=== PATIENT | female | born 1945 | race Caucasian/White ===

== ENCOUNTER → 2021-10-14 11:51 | Outpatient (BNVA) | payer SELFPAY | PROVIDERS: Visit Provider Specialist | DX: M16.11 Unilateral primary osteoarthritis, right hip (principal); M25.551 Pain in right hip | CPT/HCPCS: 73502 ==

== ENCOUNTER → 2021-10-22 00:01 | Outpatient (BNVA) | payer SELFPAY | PROVIDERS: Visit Provider Specialist | DX: Z01.812 Encounter for preprocedural laboratory examination (principal); Z20.822 Contact with and (suspected) exposure to COVID-19 | CPT/HCPCS: 87635 ==

== ENCOUNTER 2021-10-27 10:18 | Observation (INO) | payer SELFPAY ==
--- NOTE | 2021-10-22 10:27 | ECG_ITS ---
[facility] Test Date: 2021-10-22 Pat Name: Mikki Shore Department: Room: Gender: Female [employer] Architect: : 1945 Requested By: Gretta Wren Order Number: [id number] Dara MD: Ish Cerda M.D. Measurements Intervals [place] Rate: 72 P: 82 KS: 180 QRS: 94 QRSD: 112 T: 77 QT: 396 QTc: 435 Interpretive Statements SINUS RHYTHM POSSIBLE RIGHT ATRIAL ENLARGEMENT [0.25mV P-WAVE] POSSIBLE LEFT ATRIAL ENLARGEMENT [-0.1mV P-WAVE IN V1/V2] INCOMPLETE RIGHT BUNDLE BRANCH BLOCK [90+ ms QRS DURATION, TERMINAL R IN V1/V2, 40+ ms S IN I/aVL/V4/V5/V6] POSSIBLE RIGHT VENTRICULAR HYPERTROPHY [SOME/ALL OF: PROMINENT R IN V1, LATE TRANSITION, RAD, LEXIE, SSS] No previous ECG available for comparison Electronically Signed On 10-22-2021 18:00:20 CDT by Ish Cerda M.D. [id number]
--- NOTE | 2021-10-22 10:35 | ANES.PREANE2 ---
Pre-Anesthetic Assessment Height/Weight: Height 1.6 m Operation Date: 10/27/21 10:25 Proposed Procedures p Total Hip Arthroplasty Right 21419/m16.9(Right) - Reyna Acuna MD Familial anesthetic complications: None Social No alcohol and No tobacco Exam alert, oriented x 3, clear to auscultation bilaterally and regular rate & rhythm Airway Mallampati: Class I Dentition: false and partials Pulmonary None reported CV/HEM None reported None reported Hepatic None reported GI None reported Metabolic Thyroid Disease [facility] None reported Neuropsych None reported Anesthetic Plan ASA status: 2 Anesthesia: Regional (specify below) Risk of > 500 ml blood loss (7ml/kg in children): Yes, adequate IV access and fluids planned Medications/Allergies Home Medications Medication Instructions Recorded Confirmed Last Taken Type Thyroid medication PO 10/14/21 10/14/21 Unknown History Allergies Allergy/AdvReac Type Severity Reaction Status Date / Time No Known Drug Allergies Allergy Unknown Verified 10/14/21 12:46 [facility] Anesthesia Surgical History (Updated 10/16/21 @ 11:55 by Reyna Acuna MD) History of total left hip replacement Social History Smoking and tobacco status: never smoked Data Anesthesia Cardiac Studies: No Data to Display
[2021-10-22 10:45] VITALS: BMI 20.2
[2021-10-22 11:34] LABS: Basophils # 0.1 10^3/uL (0.0-0.1); Eosinophils # 0.1 10^3/uL (0.0-0.8); Eosinophils % 2.4 %; Hematocrit 41.3 % (37.0-47.0); Hemoglobin 13.1 g/dL (11.5-15.3); Lymphocytes # 1.7 10^3/uL (0.8-4.8); Lymphocytes % 29.9 %; Mean Corpuscular HGB Conc 31.7 g/dL (30.0-36.0); Mean Corpuscular Hemoglobin 30.3 pg (28.0-34.0); Mean Corpuscular Volume 95.6 fl (81-99); Mean Platelet Volume 9.9 fL (7.4-10.4); Monocytes # 0.5 10^3/uL (0.2-0.9); Neutrophils # 3.34 10^3/uL (1.8-7.7); Neutrophils % 57.5 %; Nucleated Red Blood Cells % 0 %; Platelet Count 223 10^3/cmm (130-400); Red Blood Count 4.32 10^6/uL (4.1-5.3); Red Cell Distribution Width 12.8 % (12.1-15.1); White Blood Count 5.8 10^3/uL (4.0-10.0)
[2021-10-22 11:38] LABS: Add Urine Microscopic? YES; Bilirubin Urine Neg (Negative); Blood Urine Trace (Negative); Glucose Urine UA Norm (Normal); Ketones Urine Negative (Negative); Leukocyte Esterase Urine Negative (Negative); Nitrate Urine Negative (Negative); Protein Urine Neg (Negative); Urine Appearance Clear (CLEAR); Urine Color Yellow (Yellow); Urobilinogen Urine Norm (Negative); pH Urine 7 (5-7)
[2021-10-22 11:45] LABS: Add Urine Culture? No; Bacteria Urine TRACE /hpf; Squamous Epithelial Cell Urine 0-4 /hpf (0-5)
[2021-10-22 12:02] LABS: Alanine Aminotransferase 13 U/L (0-33); Albumin Level 4.4 g/dL (3.5-5.2); Alkaline Phosphatase 65 IU/L (35-105); Anion Gap 12.9 (5-19); Aspartate Amino Transferase 17 U/L (0-32); Blood Urea Nitrogen 27 mg/dL (8-23); Calcium 9.8 mg/dL (8.5-10.5); Carbon Dioxide 27 mmol/L (22-29); Chloride 98 mmol/L (98-107); Globulin 2.7 g/dL (1.3-4.6); Glucose 95 mg/dL (65-115); Osmolality Calculated 283 mOsm/kg (285-295); Potassium 3.9 mmol/L (3.5-5.1); Sodium 134 mmol/L (136-145); Total Bilirubin 0.3 mg/dL (0.15-1.2); Total Protein 7.1 g/dL (6.6-8.7)
[2021-10-27] VITALS (32 sets, daily range): BP systolic 134–203; BP diastolic 67–145; PULSE 67–86; RESP 12–21; TEMP 34.1–36.6; O2SAT 91–100
[2021-10-27] MEDS: acetaminophen 1,000 MG/100 ML PIGGYBACK 400 MG IV ×2 (06:11→14:41)
[2021-10-27] MEDS: sodium chloride 0.9% 1,000 ML 30 ML IV ×3 (06:12→11:24)
[2021-10-27] MEDS: CELEcoxib 200 mg Capsule 400 MG PO (06:24)
--- NOTE | 2021-10-27 07:01 | W.PM.OPSUD ---
Surgery/Procedure H&P Update DATE OF PROCEDURE: October 27, 2021 DATE H&P PERFORMED: 10/14/21 H&P UPDATE INFORMATION: I have reviewed H&P completed within last 30 days, I have examined patient prior to procedure, No changes to prior documentation and H&P is in [facility] [place] [place] EMR on date indicated PREOP DIAGNOSIS: Primary osteoarthritis right hip PLANNED PROCEDURE: Operation Date: 10/27/21 07:00 Proposed Procedures p Total Hip Arthroplasty Right 05057/m16.9(Right) - Reyna Acuna MD Related Problem List Diagnoses (1) Primary osteoarthritis of right hip:
--- NOTE | 2021-10-27 07:06 | P.ANESUD_ITS ---
Pre-Anesthetic Update Pre-Anesthetic Assessment: Date of Surgery/Procedure: 10/27/21 Preop Alix gnosis: Primary osteoarthritis right hip Proposed Procedure: Operation Date: 10/27/21 07:00 Proposed Procedures p Total Hip Arthroplasty Right 57650/m16.9(Right) - Reyna Acuna MD Any changes to Pre-Anesthetic Assessment?: No Last Intake: Intake Last Liquid Date 10/26/21 Last Liquid Time 23:30 Last Solid Date 10/26/21 Last Solid Time 18:30 Vitals: Temperature 97.3 F L 10/27/21 06:02 Temperature Source Temporal Artery S can 10/27/21 06:02 Pulse Rate 80 10/27/21 06:02 Respiratory Rate 16 10/27/21 06:02 Blood Pressure 201/112 10/27/21 06:02 Blood Pressure Laurence n 141 10/27/21 06:02 Pulse Oximetry 97 10/27/21 06:02 Oxygen Delivery Me thod 10/27/21 06:02 Exam: Pre-Anes Outpt Exam: alert, oriented x 3, clear to auscultation bilaterally and regular rate & rhythm Cardiac Studies: No Data to Display
[2021-10-27] MEDS: vancomycin 1,000 MG SDV 1000 MG XX (08:08)
[2021-10-27] MEDS: ceFAZolin 1,000 mg SDV 1000 MG IRRIGATION (08:08)
--- NOTE | 2021-10-27 08:28 | SUR.OPER ---
Family Notified Of Patient's Status Via Phone.
--- NOTE | 2021-10-27 09:20 | SUR.OPER ---
Family Notified Of Patient's Status Via Phone.
--- NOTE | 2021-10-27 09:54 | P.OP_ITS ---
Operative Report Date of procedure: October 27, 2021 Pre-op diagnosis: Primary osteoarthritis right hip Post-op diagnosis: Primary osteoarthritis right hip Post-op findings: Severe degenerative osteoarthritis of the right hip with large osteophytes Procedure done: Right total hip arthroplasty Implants: The Saul total hip system with the following implants: A 52 mm by E Trident II solid back acetabular shell, an MDM cementless liner 42 mm inner diameter by E alpha code and Accolade II size 5 with 127 degree neck angle hip stem with a 28 mm outer diameter -2.7 mm neck offset and a gnosticist X3 insert size 28 mm inner diameter by 42E Specimens removed/disposition: Femoral head, disposed of Pathology: none sent Surgeon: Reyna Acuna Sagger Preparer: [employer] [facility] operating room technicians Anesthesia: MAC (With spinal, ASA 2) Estimated blood loss (mL): 200 IV fluids (mL): 1,400 Urine output (mL): 1,000 Complications: None Findings: Severe degenerative osteoarthritis with osteophytes. Leg lengths appeared equal at the conclusion of the case. The hip was stable at 90 degrees of flexion with 80 degrees of internal rotation and 30 degrees of adduction. It was also stable to external rotation and toe hang. Condition: stable Disposition: PACU (Then to floor for postoperative rehabilitation and pain management) Brief History: This 76-year-old woman was in her usual state of health when she presented to my office complaining of severe right hip pain. The patient had previously undergone left total hip arthroplasty. She tolerated this procedure well. The patient actually had significant crepitation as well. After discussion, she wished to proceed with right total hip arthroplasty. Discussion was undertaken of the risks and benefits, and consents were signed preoperatively. Procedure: Patient was brought to the operating theater.? She was transferred to the operating room table and subsequently administered a spinal anesthesia with MAC, ASA 2.? Following administration of adequate anesthesia, the patient was placed in full lateral position and held in position with a pegboard. The patient's right lower extremity was then prepped and draped in usual fashion utilizing DuraPrep.? It was draped free.? Following prepping and draping, a surgical pause was performed. At the time of surgical pause, we identified the site and side of surgery.? We also identified the patient and preoperative surgical markings.? Confirmation was made of equipment availability.? Additionally, the patient's preoperative IV antibiotic, Ancef 2 g, was confirmed as being given in a timely fashion and being the appropriate antibiotic.? She received TXA 1 g preoperatively as well. Following the surgical pause, an incision was made centering over the patient's greater trochanter continuing proximally and distally as necessary to allow access to the hip joint.? Dissection continued through skin and soft tissues using a scalpel, and hemostasis was obtained using electrocautery. The tensor fascia tate was identified and incised longitudinally.? Sciatic nerve was identified and protected throughout the surgical procedure.? A Charnley U retractor was placed after the tensor fascia tate had been incised longitudinally, and the sciatic nerve had been identified.? The piriformis muscle was identified and tagged. Piriformis muscle along with the remaining short external rotators were then incised from the posterior aspect of the hip joint. These were retracted posteriorly. ? The capsule was entered in a T-type fashion with the edges being tagged. The hip was then dislocated. Following hip dislocation, a femoral neck osteotomy was accomplished in the appropriate position. We then evaluated the acetabulum. The femur was retracted anteriorly.? Soft tissues were retracted and the labrum was removed.? We then began reaming.? We deepened the acetabulum utilizing a smaller reamer.? Evaluation of the acetabulum was accomplished, and we were able to ream to 51 mm to allow for a size 52 mm acetabular shell. The acetabular component was impacted into position. It was noted that the acetabulum matched the bony anatomy.? The cup was noted to seat nicely and had good fixation upon impact.? The MDM cementless liner was impacted into position and care was taken to assure that it completely seated.? Also, we confirmed that the acetabular insert was completely seated prior to addressing the femur. Attention was directed to the proximal femur.? The proximal femur was lifted out of the wound.? A canal finder was passed, and we then used the reamer to lateralize.? We then began broaching. ?We broached sequentially and had excellent fit and fill with the size 5 Accolade II 127 degree femoral component.? A trial reduction was accomplished with a -2.7 mm offset femoral head once the size 5 broach was placed in position.? The patient was stable with this construct, and it was not felt that we had increased her leg length.? With this in place, we had the above stabilities, and at that time, we felt that we had restored leg lengths.? We also felt that we had excellent stability noted above. Therefore, trial components were removed after the hip was dislocated.? The size 5 Accolade II 127 degree neck angle hip stem was impacted into position without difficulty and onto this was placed a -2.7 mm offset by 28 mm outer diameter femoral head inside of the MDM size 42E insert with a 28 mm inner diameter.? With this construct, we had the above-noted stability.? The stem was noted to seat nicely prior to placement of the femoral head.? The wound was copiously irrigated with Betadine.? At this time, with all components in appropriate position, the hip was reduced.? Following reduction of the prosthesis once again, we confirmed the stability of the hip.? Leg lengths were also felt to be satisfactory. Being satisfied with the prosthesis, attention was directed to closure.? Closure was accomplished with 0 Vicryl in the capsular tissues.? Piriformis was reattached with 0 Vicryl as well.? Tensor fascia tate was closed with 0 Vicryl in an interrupted fashion.? The subcutaneous tissues were closed with 2-0 Monocryl.? Vancomycin powder and a Gelfoam thrombin mixture was placed into the wound as well.? The skin was closed with 4-0 Monocryl followed by Dermabond, Prineo, and OpSite.? The patient was placed in an abduction pillow.? She was returned the Recovery Room in a satisfactory condition and will be discharged to the floor for postoperative rehabilitation and pain management.? There were no complications. Related Problem List Diagnoses (1) Primary osteoarthritis of right hip:
--- NOTE | 2021-10-27 10:01 | XR_ITS ---
WS: [id number] Exam: XR pelvis 1-2V* [id number] Date/Time of Exam: 10/27/2021 10:08 AM Reason For Exam: S/P THAO right Comparison 10/14/2021. Recent total hip replacement on the right appears to be in satisfactory position from the AP view. No lateral view was included. Postoperative changes in the adjacent soft tissues. Intact left-sided tot al hip replacement also noted. The pelvis is intact. XR/XR pelvis 1-2V* [id number] IMPRESSION: 1. Recent right total hip replacement.
[2021-10-27] MEDS: fentaNYL 50 mcg/mL INJ 2mL IVP (10:04)
[2021-10-27] MEDS: HYDROmorphone 1 mg/mL INJ 1 mL 0.5 MG IVP ×3 (10:12→10:27)
[2021-10-27] MEDS: oxyCODONE 5 mg IR Tab/Cap PO ×3 (11:45→21:43)
--- NOTE | 2021-10-27 13:58 | PM.CONSULT ---
Providers/Reason For Consult Consulting Physician/Specialty*: Frase/Hosptialist Reason for Consult*: Hypertension and hypothermia Requesting Physician: Dr Acuna Attending Physician: Reyna Acuna MD History of Present Illness History of Present Illness Mikki Shore is a 76 year old female who underwent total right hip arthroplasty by Dr. Acuna on the day of admission. Upon presentation to the hospital today she was noted to be significantly hypertensive with pressures 200s over 100s. She remained hypertensive throughout surgery and upon arrival to the floor postoperatively. She does report a history of some high blood pressures in the past. She has managed it with herbal medications rather than any prescription medications. Last time she saw her primary care provider, Dr. Adriana Verduzco in [facility] who's office can be reached at [phone], blood pressures were 140s over 80s. This was back in April 2021. Patient admits to being anxious about being in the hospital. She has a preference for female caregivers and did have a male anesthesiologist/nurse this morning. On the floor she has female nurses. Current blood pressure is 180s over 90s. She denies any shortness of breath. She is nauseated and has had some vomiting but is also had some pain medications and anesthesia today. Denies current chest pain. Does have some issues with her right shoulder moving out of place and will have some chest discomfort when it is bothering her, only to resolve when the shoulder is back in place . No other reports of any chest discomfort. She denies any numbness or paresthesias beyond what she is currently feeling only in her right lower extremity postoperatively. Reports some blurry vision after she has been reading for a while at times. No headaches described. She is unsure with the herbal/natural therapeutic she had been on in the past. The only prescription medication she takes is levothyroxine for hypothyroidism. She denies any history of coronary artery disease. Her father had diabetes later in life but denies any family history of heart problems. She did mention her having heart problems. I do not have any more recent vital signs for comparison then today which are listed below. In addition to the hypertension, patient was also hypothermic with temperatures as low as 93.3. Currently up to 97.5. She reports some weight loss. Last bowel movement was yesterday. No other recent symptoms to speak of beyond issues with her hip. History is obtained from Mrs. Holcomb, with input from her daughter and eldest son/[id number] who are in the room with her. Review of Systems Const: Reports: change in weight (weight loss); Denies: fever(s) Eyes: Reports: blurry vision (occassional after reading a long time) ENMT: Denies: disequilibrium Card: Reports: chest pain (Only when she has issues with her left shoulder moving out of place ); Denies: palpitations or edema Resp: Denies: dyspnea or non-productive cough GI: Reports: nausea, vomiting, constipation (When she last had surgery) and bloating (With prune juice) : Reports: other (Uribe catheter in place with significant amount of urine output noted) Musc: Reports: extremity pain (Appropriate postoperative discomfort right lower extremity) Skin/Breast: Denies: rash Neuro: Reports: other (Denies focal motor or sensory deficits beyond expected post op changes); Denies: headache(s) or dizziness Joe/Lymph: Denies: easy bleeding Medications/Allergies Home Medications Medication Instructions Recorded Confirmed Last Taken Type levothyroxine 75 mcg tablet 75 mcg PO DAILY 10/22/21 10/22/21 Unknown History Allergies Allergy/AdvReac Type Severity Reaction Status Date / Time lactase [From Dairy Aid] Allergy Unknown Verified 10/27/21 06:00 No Known Drug Allergies Allergy Unknown Verified 10/27/21 06:00 Sugars, Metabolically Active Allergy Unknown Verified 10/27/21 06:00 wheat Allergy ALGY-Rash Verified 10/27/21 06:00 Current Medications Generic Name Dose Route Start Last Admin Trade Name Freq PRN Reason Stop Dose Admin Sodium Chloride 1,000 mls @ 30 mls/hr 10/27/21 10:45 10/27/21 11:24 Sodium Chloride 0.9% IV 30 mls/hr .Q24H CLARA Administration Oxycodone HCl 5 mg 10/27/21 10:55 10/27/21 11:45 Oxycodone 5 Mg Ir Tab/Cap PO 5 mg Q4H PRN Administration MODERATE PAIN PFSH Acute PFSH: Medical History (Updated 10/27/21 @ 15:12 by Anju Hopkins MD) Gluten intolerance Self diagnosed Hypothyroidism Surgical History (Updated 10/27/21 @ 14:02 by Anju Hopkins MD) History of total left hip replacement Family History (Updated 10/27/21 @ 14:41 by Anju Hopkins MD) Father Diabetes Mother Cancer from pneumonia Denies family history of CAD (coronary artery disease) Anesthesia complication Hypertension Social History (Updated 10/27/21 @ 14:03 by Anju Hopkins MD) Smoking and tobacco status: never smoked Alcohol intake: never Substance/Drug Use: never Vitals/I&O/Wt Last Vital Signs Temp 97.1 F L 10/27/21 13:30 Pulse 68 10/27/21 13:20 Resp 17 10/27/21 13:20 BP 187/87 10/27/21 13:20 Pulse Ox 96 10/27/21 13:20 Selected Blood Pressure Entries 10/27/21 06:02 10/27/21 09:57 10/27/21 10:00 Blood Pressure 201/112 134/88 136/97 10/27/21 10:05 10/27/21 10:10 10/27/21 10:15 Blood Pressure 142/105 178/90 172/103 10/27/21 10:20 10/27/21 10:25 10/27/21 10:30 Blood Pressure 171/145 179/101 168/106 10/27/21 10:35 10/27/21 10:40 10/27/21 10:50 Blood Pressure 168/104 167/100 167/94 10/27/21 10:55 10/27/21 11:05 10/27/21 11:20 Blood Pressure 165/96 160/94 203/98 10/27/21 11:50 10/27/21 12:20 10/27/21 13:20 Blood Pressure 193/95 202/96 187/87 10/26/21 10/27/21 10/27/21 22:59 06:59 14:59 Intake Total 100 / 100 2934.5 / 2934.5 Output Total 2200 / 2200 Balance 100 / 100 734.5 / 734.5 Physical Exam Narrative: Constitutional: Sleepy post surgery but alert enough to answer questions, looks like she does not feel well and in fact had an episode of vomiting during my evaluation after which she looked less unwell, thin build HEENT: Normocephalic, pupils are equally reactive, extraocular movements are intact, no photophobia, dry mucous membranes Neck: Supple Respiratory: Clear to auscultation bilaterally Cardiovascular: Regular rate and rhythm, no murmurs gallops or rubs, prominent jugular venous pulsations Abdomen: Soft, nontender,postive bowels sounds : Uribe catheter, around 800 mL clear yellow urine in bag Extremities: No pretibial edema, equal dorsalis pedis pulses bilaterally, surgical site intact to the right hip Skin: Dry, no rashes or bruises, postsurgical changes appreciated Neuro: Speech clear, face symmetric, handgrip is equal, can move toes on both feet Psych: Normal affect Urinary Catheter Management: Uribe: Cath Placed During This Visit: yes Urinary Catheter Date of Insertion: 10/27/21 Urinary Catheter Time of Insertion: 07:20 Data : 10/22/21 11:05 10/22/21 11:05 Other Labs: Radiology Impressions Pelvis X-Ray 10/27/21 10:01 IMPRESSION: 1. Recent right total hip replacement. Laboratory Results WBC 5.8 10^3/uL (4.0-10.0) 10/22/21 11:05 RBC 4.32 10^6/uL (4.1-5.3) 10/22/21 11:05 Hgb 13.1 g/dL (11.5-15.3) 10/22/21 11:05 Hct 41.3 % (37.0-47.0) 10/22/21 11:05 MCV 95.6 fl (81-99) 10/22/21 11:05 MCH 30.3 pg (28.0-34.0) 10/22/21 11:05 MCHC 31.7 g/dL (30.0-36.0) 10/22/21 11:05 RDW 12.8 % (12.1-15.1) 10/22/21 11:05 Plt Count 223 10^3/cmm (130-400) 10/22/21 11:05 MPV 9.9 fL (7.4-10.4) 10/22/21 11:05 Neut % (Auto) 57.5 % 10/22/21 11:05 Lymph % (Auto) 29.9 % 10/22/21 11:05 Taliaferro % (Auto) 9.0 % 10/22/21 11:05 Eos % (Auto) 2.4 % 10/22/21 11:05 Baso % (Auto) 1.0 % 10/22/21 11:05 Neut # (Auto) 3.34 10^3/uL (1.8-7.7) 10/22/21 11:05 Lymph # (Auto) 1.7 10^3/uL (0.8-4.8) 10/22/21 11:05 Taliaferro # (Auto) 0.5 10^3/uL (0.2-0.9) 10/22/21 11:05 Eos # (Auto) 0.1 10^3/uL (0.0-0.8) 10/22/21 11:05 Baso # (Auto) 0.1 10^3/uL (0.0-0.1) 10/22/21 11:05 Nucleated RBC % (auto) 0 % 10/22/21 11:05 Nucleated RBCs # 0.0 /100WBC 10/22/21 11:05 Sodium 134 mmol/L (136-145) L 10/22/21 11:05 Potassium 3.9 mmol/L (3.5-5.1) 10/22/21 11:05 Chloride 98 mmol/L (98-107) 10/22/21 11:05 Carbon Dioxide 27 mmol/L (22-29) 10/22/21 11:05 Anion Gap 12.9 (5-19) 10/22/21 11:05 BUN 27 mg/dL (8-23) H 10/22/21 11:05 Creatinine 0.5 mg/dL (0.5-0.9) 10/22/21 11:05 GFR Calculation Not Reportable 10/22/21 11:05 Glucose 95 mg/dL (65-115) 10/22/21 11:05 Calculated Osmolality 283 mOsm/kg (285-295) L 10/22/21 11:05 Calcium 9.8 mg/dL (8.5-10.5) 10/22/21 11:05 Total Bilirubin 0.3 mg/dL (0.15-1.2) 10/22/21 11:05 AST 17 U/L (0-32) 10/22/21 11:05 ALT 13 U/L (0-33) 10/22/21 11:05 Alkaline Phosphatase 65 IU/L (35-105) 10/22/21 11:05 Total Protein 7.1 g/dL (6.6-8.7) 10/22/21 11:05 Albumin 4.4 g/dL (3.5-5.2) 10/22/21 11:05 Globulin 2.7 g/dL (1.3-4.6) 10/22/21 11:05 Urine Color Yellow (Yellow) 10/22/21 11:09 Urine Appearance Clear (CLEAR) 10/22/21 11:09 Urine pH 7 (5-7) 10/22/21 11:09 Ur Specific Friant 1.010 (1.005-1.030) 10/22/21 11:09 Urine Protein Neg (Negative) 10/22/21 11:09 Urine Glucose (UA) Norm (Normal) 10/22/21 11:09 Urine Ketones Negative (Negative) 10/22/21 11:09 Urine Blood Trace (Negative) H 10/22/21 11:09 Urine Nitrate Negative (Negative) 10/22/21 11:09 Urine Bilirubin Neg (Negative) 10/22/21 11:09 Urine Urobilinogen Norm mg/dL (Negative) 10/22/21 11:09 Ur Leukocyte Esterase Negative (Negative) 10/22/21 11:09 Urine RBC None /hpf (0-2) 10/22/21 11:09 Urine WBC None /hpf (0-5) 10/22/21 11:09 Ur Squamous Epith Cells 0-4 /hpf (0-5) H 10/22/21 11:09 Amorphous Sediment Not Reportable 10/22/21 11:09 Urine Bacteria Trace /hpf (NONE) 10/22/21 11:09 A&P Assessment and plan (1) Hypertension: Has a history of high blood pressures in the past but is never required prescription medication, had been on herbal treatments in the past. Initially it was thought that blood pressures were as elevated as they are due to anxiety which patient freely admits to having about being in the hospital setting however significant hypertension with pressures as high as 200s over 100s have persisted. Denies current pain as a contributing factor. She received Celebrex as part of her overall pain control management as well as IV fluids but otherwise do not see any medications that might account for such. Pressures were elevated before she received any fluids today as well. Preoperative labs done on the of this month did not reveal any protein although trace blood was noted without any red blood cells identified. BUN was slightly above normal range. Thus far today demonstrating good urine output. Presently without any neurological symptoms. Has had some nausea but that could just as easily be secondary to pain medication and anesthesia. She indicates she did have nausea after pain medicines last surgery. Denies chest pain or difficulty breathing. Status: Acute (2) Hypothermia: Patient's temperature came up quite quickly without much in the way of intervention bring up possibility of a spurious reading. With improvement will simply monitor for now without further work-up at this time. Status: Acute (3) S/P total right hip arthroplasty: Elective procedure, postop day 0 Status: Acute (4) Hypothyroidism: Chronically on levothyroxine Status: Chronic Plan Check EKG for comparison against 1 done preoperatively Discussed with patient and her family checking electrolytes in the morning given the hypertension and they were agreeable We will check H&H along with electrolytes Plan to start her on a low-dose of amlodipine 2.5 mg daily and monitor response If we need to initiate IV or other treatment patient and family are agreeable to this with goal of utilizing lower doses of any medications that we may have to use Given Frase in the upper ranges of normal when she was last seen at primary care provider's clinic and lack of definitive symptoms related to current high blood pressures will hold off on further work-up for the time being We will monitor patient's response to treatment and for any symptoms suggestive of more acute cardiac process Ensure adequate pain control Ensure bowel regimen taken regularly with the medications as constipation was her primary problem postoperatively last time along with nausea Antiemetics as needed Home levothyroxine has continued Recommend outpatient follow-up with primary care provider to monitor blood pressures and potential need for prescription treatment versus reinitiation of herbal/natural therapy she was previously taking Monitor urine output until Uribe was removed as volume out seems high for documented amount in presently Adjusted diet to support her gluten-free preference Supportive care otherwise Will follow along while patient is here to assist with hypertension management, particularly in light of her preference for female provider Plans were discussed with patient and family present in the room and all were given an opportunity to ask questions Full code Thank you for consultation Consult Attestations Medical Necessity Statement: As per attending. In addition to care post operatively from orthopedic standpoint, also currently requiring management and evaluation of significant hypertension in a patient without a know history of high blood pressure. Coding Level of Care Code Acute Azure Architect for Chg Fwd Diagnoses Hypertension I10 Hypothermia T68.XXXA S/P total right hip arthroplasty Z96.641 Hypothyroidism E03.9
[2021-10-27] MEDS: ondansetron 2 mg/ML SDV 2 mL 4 MG IVP (14:28)
--- NOTE | 2021-10-27 14:39 | ECG_ITS ---
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 Measurements Intervals Welsh Rate: 74 P: 67 AK: 187 QRS: 61 QRSD: 109 T: 57 QT: 442 QTc: 493 Interpretive Statements SINUS RHYTHM POSSIBLE LEFT ATRIAL ENLARGEMENT [-0.1mV P-WAVE IN V1/V2] INCOMPLETE RIGHT BUNDLE BRANCH BLOCK [90+ ms QRS DURATION, TERMINAL R IN V1/V2, 40+ ms S IN I/aVL/V4/V5/V6] Compared to ECG 10/22/2021 10:33:01 No significant changes Electronically Signed On 10-28-2021 17:15:17 CDT by Johny Laura M.D. [id number]
--- NOTE | 2021-10-27 15:24 | PC.NURSE ---
order for hydromorphone seen by this nurse asked Dr. Hopkins if she would like for patient to have this and she said no do not give to patient. She had her tylenol infusion and can have her next oxycodone at 1545. Patient denies pain at this time.
--- NOTE | 2021-10-27 15:45 | ANE.PACU2 ---
Inpatient post-anesthesia follow up: Airway intact: Yes Vital signs: Temperature 97.5 F Pulse Rate 72 Respiratory Rate 18 Blood Pressure 189/93 Pulse Oximetry 97 Oxygen Delivery Me thod Room Air Oxygen Flow Rate Fraction of Inspir ed Oxygen Hydration adequate: Yes Nausea and vomiting: No Pain level: 4 Mental status: Baseline
[2021-10-27] MEDS: amlodipine 5 mg Tablet 2.5 MG PO (15:52)
[2021-10-27] MEDS: chlorhexidine gluconate 0.12% Btl 473 mL 30 ML MUCOUS MEM ×2 (17:32→21:44)
[2021-10-27] MEDS: sennosides-docusate Tablet 2 TAB PO (17:33)
[2021-10-27] MEDS: mupirocin oint 22 gm 1 APPLIC NASAL (17:33)
--- NOTE | 2021-10-27 18:15 | PC.NURSE ---
Iron complex not given on time due to wrong iron being sent over from pharmacy. Mikal in pharmacy is going to tube over the correct iron formulation and then it will be given to the patient.
[2021-10-27] MEDS: iron polysaccharide complex 150 mg Capsule PO (18:43)
[2021-10-28] VITALS (10 sets, daily range): BP systolic 104–163; BP diastolic 56–71; PULSE 64–72; RESP 15–18; TEMP 36.6–36.9; O2SAT 97
[2021-10-28] MEDS: acetaminophen 1,000 MG/100 ML PIGGYBACK 400 MG IV (01:06)
[2021-10-28] MEDS: oxyCODONE 5 mg IR Tab/Cap PO ×5 (01:41→21:10)
[2021-10-28 05:16] LABS: Hematocrit 36.4 % (37.0-47.0); Hemoglobin 11.6 g/dL (11.5-15.3)
[2021-10-28 05:44] LABS: Alanine Aminotransferase 14 U/L (0-33); Albumin Level 3.5 g/dL (3.5-5.2); Alkaline Phosphatase 51 IU/L (35-105); Anion Gap 11.1 (5-19); Aspartate Amino Transferase 23 U/L (0-32); Blood Urea Nitrogen 10 mg/dL (8-23); Calcium 8.9 mg/dL (8.5-10.5); Carbon Dioxide 24 mmol/L (22-29); Chloride 98 mmol/L (98-107); Globulin 2.2 g/dL (1.3-4.6); Glucose 134 mg/dL (65-115); Osmolality Calculated 269 mOsm/kg (285-295); Potassium 4.1 mmol/L (3.5-5.1); Sodium 129 mmol/L (136-145); Thyroid Stimulating Hormone 3.43 uIU/mL (0.27-4.20); Total Bilirubin 0.7 mg/dL (0.15-1.2); Total Protein 5.7 g/dL (6.6-8.7)
--- NOTE | 2021-10-28 06:10 | PC.NURSE ---
This nurse rounded on pt at 0600. Pt was taking a tablet. When asked what the tablet was pt stated this is my levothyroxine 75 mcg.
[2021-10-28] MEDS: mupirocin oint 22 gm 1 APPLIC NASAL (10:04)
[2021-10-28] MEDS: aspirin 325 mg EC Tablet PO (10:04)
[2021-10-28] MEDS: amlodipine 5 mg Tablet 2.5 MG PO (10:04)
[2021-10-28] MEDS: multivitamin therapeutic Tablet 1 TAB PO (10:05)
[2021-10-28] MEDS: sennosides-docusate Tablet 2 TAB PO ×2 (10:06→18:18)
--- NOTE | 2021-10-28 10:43 | PC.NURSE ---
THIS [employer]ION[employer] PIL[employer] GOT PATIENT UP AND INTO CHAIR WITHOUT DIFFICULTY. NOTIFIED SANTOS IN PT THAT MS BURTON WANTED TO KNOW WHEN SHE WAS UP IN CHAIR AND NOT DIZZY AND SHE WOULD RETURN AND WALK HER. THIS [employer] P[employer] CALLED PT CELL PHONE AND TOLD WAYLON AGAIN THAT PATIENT NEEDED TO BE WALKED. WAS WAITING TILL SHE WAS WALKING BEFORE REMOVING HER BRITO.
--- NOTE | 2021-10-28 11:55 | PC.NURSE ---
pt is refusing to eat lunch, and refusing nursing to remove catheter. states she is too tired and needs to take a nap, does not want to be disturbed for 2 hours
--- NOTE | 2021-10-28 12:44 | P.PN_ITS ---
Subjective Subjective: Some dizziness this morning when she first got up. No more vomiting. Still with some intermittent nausea. Blood pressures are better than yesterday as noted below. Declined to have ramírez removed. No flatus or BM yet. Will see if she can tolerate lunch. No chest pain of focal neurological co mplaints. Medications: Reviewed: Yes Vitals/I&O/Wt Last Vital Signs Temp 98.5 F 10/28/21 10:10 Pulse 65 10/28/21 10:10 Resp 17 10/28/21 10:10 BP 163/71 10/28/21 10:10 Pulse Ox 97 10/28/21 10:10 Selected Entries 10/27/21 16:20 10/27/21 18:20 10/27/21 20:20 Blood Pressure 164/83 135/75 144/67 10/28/21 04:35 10/28/21 10:10 Blood Pressure 142/68 163/71 10/27/21 10/28/21 10/28/21 22:59 06:59 14:59 Intake Total 360 / 3394.5 100 / 3494.5 Output Total 400 / 4300 250 / 4550 120 / 120 Balance -40 / -905.5 -150 / -1055.5 -120 / -120 Physical Exam Narrative: Constitutional: Awakem sittiing up in bed, smiling HEENT: EOMI, moist mucus membranes Respiratory: Clear to auscultation bilaterally Cardiovascular: Regular rate and rhythm Abdomen: Soft, nontender, postive bowels sounds : Ramírez catheter remains in place Extremities: Surgical site intact to the right hip, no increase edema noted Neuro: Speech clear, smile symmetric, moves all extremities Urinary Catheter Management: Ramírez: Cath Placed During This Visit: yes Reason for Continuing Indwelling Catheter: Required Immobilization for Trauma or Surgery or Anesthesia Urinary Catheter Date of Insertion: 10/27/21 Urinary Catheter Time of Insertion: 07:20 Data : 10/28/21 05:03 10/28/21 05:03 Other Labs: Laboratory Tests 10/28/21 05:03 Calcium 8.9 Total Bilirubin 0.7 AST 23 ALT 14 Alkaline Phosphatase 51 Total Protein 5.7 L Albumin 3.5 Globulin 2.2 TSH 3.43 A&P Assessment and plan (1) Hypertension: Suspect has untreated baseline hypertension, potentially exacerbated currently by being in health care setting. More significant elevation noted day of r, while initially felt to be due to anxiety, persisted. May be anesthesia/pain related persistent elevations along with initial anxiety. Goal blood pressures less than 140/90 for this patient. Amlodipine 2.5mg daily started on 10/27, tolerating well thus far Status: Acute Qualifiers: Hypertension type: primary hypertension Qualified Code(s): I10 - Essential (primary) hypertension (2) S/P total right hip arthroplasty: Elective procedure, postop day 1 Has been out of bed, still with some dizziness upon standing Hgb 36, down an bit Status: Acute (3) Hypothermia: Transient and possible spurious. No intervention or work up. Status: Resolved Qualifiers: Encounter type: initial encounter Qualified Code(s): T68.XXXA - Hypothermia, initial encounter (4) Hypothyroidism: Chronically on levothyroxine TSH within normal limits at 3.43 Status: Chronic Qualifiers: Hypothyroidism type: acquired Qualified Code(s): E03.9 - Hypothyroidism, unspecified Plan Post op EKG no changes compared to preop Blood sugars noted to be borderline today, will have rechecked outpatient Reviewed with family getting a new BP cuff for home use, recording pressures and taking the device and list of BPs to outpatient follow up appointment Low sodium today, likely volume related, will monitor clinically Continue amlodipine 2.5 mg daily Continue home dose levothyroxine Continue diet in line with her allergies Stop IVFs Continue bowel regimen Pain and nausea control as needed Monitor Is and Os On aspirin for DVT prophylaxis Will need blood sugar recheck on outpatient basis Ramírez to come out today, discussed with patient and family reasons for removing post-op as as possible to encourage more normal activity reflective of what she will need to be able to do at home and particularly to decrease risk of infection Supportive care otherwise Reviewed with Dr Acuna, as well as patient and family in room Patient and family all were given an opportunity to ask questions Full code Will continue to follow Attestations Medical Necessity Statement*: Given dizziness and nausea persisting today, recommend monitoring through tomorrow. Goals, from hospitalist perspective today, are to monitor blod pressures after 2nd dose of amlodipine, monitor for symptoms necessitating further evaluation, get ramírez out, tolerate oral intake, monitor bowel function and continue usual post op therapy plans Coding Level of Care Code Acute Hand Patcher for Chg Fwd Diagnoses Hypertension I10 Hypertension type: primary hypertension Hypothermia T68.XXXA Encounter type: initial encounter S/P total right hip arthroplasty Z96.641 Hypothyroidism E03.9 Hypothyroidism type: acquired
[2021-10-28] MEDS: acetaminophen 500 mg Tablet 1000 MG PO ×2 (14:20→21:11)
--- NOTE | 2021-10-28 14:30 | PC.NURSE ---
pt back to bed, minimal assistance
--- NOTE | 2021-10-28 16:21 | P.PN_ITS ---
Subjective Subjective: Some dizziness this morning when she first got up. No more vomiting. Still with some intermittent nausea. Blood pressures are better than yesterday as noted below. Declined to have ramírez removed. No flatus or BM yet. Will see if she can tolerate lunch. No chest pain of focal neurological co mplaints. Discussed these findings with Dr. Hopkins. The patient is agreeable to blood pressure medicine. Dr. Hopkins have spoken with the primary care physician. Patient is reluctant for discharge home, and I am in agreement with this secondary to these findings. Medications: Reviewed: Yes Vitals/I&O/Wt Last Vital Signs Temp 98.3 F 10/28/21 14:29 Pulse 69 10/28/21 14:29 Resp 16 10/28/21 14:29 BP 124/58 10/28/21 14:29 Pulse Ox 97 10/28/21 10:10 10/28/21 10/28/21 10/28/21 06:59 14:59 22:59 Intake Total 100 / 3494.5 350 / 350 Output Total 250 / 4550 820 / 820 Balance -150 / -1055.5 -470 / -470 Physical Exam Const: COMMON NORMALS: no acute distress, average body habitus, patient orie nted x3 and alert GENERAL APPEARANCE: cooperative and comfortable NUTRITIONAL APPEARANCE: thin ORIENTATION/CONSCIOUSNESS: Yes awake HENMT: COMMON NORMALS: normocephalic and atraumatic HEAD & SCALP: normocephalic and atraumatic Eye: GENERAL EYE: appearance normal, both eyes and all related structures Chest: COMMONS NORMALS: normal inspection of the chest Resp: COMMON NORMALS: normal respiratory effort EFFORT & INSPECTION: Yes able to speak in complete sentences and Yes symmetric chest movement Extremity: RIGHT LOWER EXTREMITY: Yes hip joint (Thigh is soft) Right hip: Yes inspection (Dressing dry and intact.), Yes palpation (Minimal tenderness.) and Yes neurovascular exam (Intact distally with no signs of DVT.) Neuro: COMMON NORMALS: patient oriented x3 SENSORIUM/ORIENTATION: Yes alert Psych: COMMON NORMALS: mental status grossly normal APPEARANCE: Yes grossly normal ATTITUDE: Yes calm and Yes engaged ATTENTION/CONCENTRATION: Yes attention grossly intact Skin: COMMON NORMALS: no rashes or lesions noted GENERAL SKIN EXAM: no rashes or lesions noted Urinary Catheter Management: Ramírez: Cath Placed During This Visit: yes, but has since been removed by the nurse Reason for Continuing Indwelling Catheter: Other Urinary Catheter Date of Insertion: 10/27/21 Urinary Catheter Time of Insertion: 07:20 Date Urinary Catheter Removed: 10/28/21 Time Urinary Catheter Discontinued: 13:15 Data : 10/28/21 05:03 10/28/21 05:03 A&P Assessment and plan (1) Primary osteoarthritis of right hip: Patient underwent same-day surgery for right total hip arthroplasty. This is postop day 1, and she is working with physical therapy. Her Ramírez is still in place, and she has had some dizziness. She also had blood pressure issues for which Dr. Hopkins, hospitalist, is involved in her care. H&H is remained stable. She will require ongoing physical therapy as she was unable to completely cooperate with physical therapy today secondary to dizziness. Ramírez catheter will be removed later today. Status: Chronic Attestations Medical Necessity Statement*: Ongoing medical care following total hip arthroplasty. Coding Level of Care Code Acute Building Wrecker for Bhupinder Lopez Diagnoses Primary osteoarthritis of right hip M16.11
--- NOTE | 2021-10-28 16:33 | PC.NURSE ---
pt up out of bed, ambulated to door and then into bathroom. voided and then ambulated to chair and remains up in chair for dinner meal.
[2021-10-28] MEDS: iron polysaccharide complex 150 mg Capsule PO (18:18)
[2021-10-29] VITALS (7 sets, daily range): BP systolic 128–139; BP diastolic 66–73; PULSE 74–76; RESP 16–18; TEMP 36.7–36.8; O2SAT 96
[2021-10-29] MEDS: oxyCODONE 5 mg IR Tab/Cap PO ×4 (01:20→13:56)
[2021-10-29] MEDS: acetaminophen 500 mg Tablet 1000 MG PO ×2 (05:48→13:57)
[2021-10-29] MEDS: amlodipine 5 mg Tablet 2.5 MG PO (10:29)
[2021-10-29] MEDS: multivitamin therapeutic Tablet 1 TAB PO (10:29)
[2021-10-29] MEDS: levothyroxine 75 mcg Tablet PO (10:31)
[2021-10-29] MEDS: iron polysaccharide complex 150 mg Capsule PO (10:31)
[2021-10-29] MEDS: mupirocin oint 22 gm 1 APPLIC NASAL (10:31)
[2021-10-29] MEDS: aspirin 325 mg EC Tablet PO (10:31)
[2021-10-29] MEDS: chlorhexidine gluconate 0.12% Btl 473 mL 30 ML MUCOUS MEM (10:34)
[2021-10-29] MEDS: sennosides-docusate Tablet 2 TAB PO (11:13)
--- NOTE | 2021-10-29 12:26 | P.DS_ITS ---
Discharge Providers Date of Admission: 10/27/21 10:18 Date of Discharge: October 29, 2021 Attending Provider at Admission: Reyna Acuna MD Attending Provider at Discharge: Reyna Acuna MD Consults: Dr. Anju Hopkins Diagnoses at Discharge Discharge Diagnosis (1) Primary osteoarthritis of right hip: Status: Chronic (2) S/P total right hip arthroplasty: Status: Acute Permanent problem details: Date of procedure: October 27, 2021 Diagnosis: Primary osteoarthritis right hip Post-op findings: Severe degenerative osteoarthritis of the right hip with large osteophytes Procedure done: Right total hip arthroplasty Implants: The Livra Panels total hip system with the following implants: A 52 mm by E Trident II solid back acetabular shell, an MDM cementless liner 42 mm inner diameter by E alpha code and Accolade II size 5 with 127 degree neck angle hip stem with a 28 mm outer diameter -2.7 mm neck offset and a congregation X3 insert size 28 mm inner diameter by 42E (3) Hypertension: Status: Acute Qualifiers: Hypertension type: primary hypertension Qualified Code(s): I10 - Essential (primary) hypertension (4) Hypothermia: Status: Resolved Qualifiers: Encounter type: initial encounter Qualified Code(s): T68.XXXA - Hypothermia, initial encounter (5) Hypothyroidism: Status: Chronic Qualifiers: Hypothyroidism type: acquired Qualified Code(s): E03.9 - Hypothyroidism, unspecified Reason for Visit Reason for Visit: osteoarthritis right hip Brief History: This 76-year-old woman was in her usual state of health when she presented to my office complaining of severe right hip pain.? The patient had previously undergone left total hip arthroplasty.? She tolerated this procedure well.? The patient actually had significant crepitation as well.? After discussion, she wished to proceed with right total hip arthroplasty.? Discussion was undertaken of the risks and benefits, and consents were signed preoperatively. Hospital Course Hospital Course The patient was admitted on October 27 for same-day surgery. She underwent an uneventful right total hip arthroplasty. Postoperatively, she was placed on observation status. She had elevated blood pressure following the surgical procedure, and Dr. Hopkins was consulted. The patient had a history of hypertension, but she treated this only with herbal supplements. Dr. Hopkins discussed the hypertension with the patient and also with the patient's primary care in [place]. On the first postoperative day, the patient still was having some dizziness. She was knocked felt to be appropriate and stable for discharge to home. Blood pressure medications were given and her pressure responded. Physical Exam Const: COMMON NORMALS: no acute distress, average body habitus, patient oriented x3 and alert GENERAL APPEARANCE: cooperative and comfortable NUTRITIONAL APPEARANCE: thin ORIENTATION/CONSCIOUSNESS: Yes awake HENMT: COMMON NORMALS: normocephalic and atraumatic HEAD & SCALP: normocephalic and atraumatic Eye: GENERAL EYE: appearance normal, both eyes and all related structures Chest: COMMONS NORMALS: normal inspection of the chest Resp: COMMON NORMALS: normal respiratory effort EFFORT & INSPECTION: Yes able to speak in complete sentences and Yes symmetric chest movement Extremity: RIGHT LOWER EXTREMITY: Yes hip joint (Thigh is soft and nontender.) Right hip: Yes inspection (No evidence of drainage or DVT) and Yes neurovascular exam (Intact distally) Neuro: COMMON NORMALS: patient oriented x3 SENSORIUM/ORIENTATION: Yes alert Psych: COMMON NORMALS: mental status grossly normal APPEARANCE: Yes grossly normal ATTITUDE: Yes calm and Yes engaged ATTENTION/CONCENTRATION: Yes attention grossly intact Skin: COMMON NORMALS: no rashes or lesions noted GENERAL SKIN EXAM: no rashes or lesions noted Urinary Catheter Management: Uribe: Cath Placed During This Visit: yes, but has since been removed by the nurse Reason for Continuing Indwelling Catheter: Other Urinary Catheter Date of Insertion: 10/27/21 Urinary Catheter Time of Insertion: 07:20 Date Urinary Catheter Removed: 10/28/21 Time Urinary Catheter Discontinued: 13:15 Discharge Data Studies Completed and Pending Completed Studies During Hospitalization Category Date Time Status XR pelvis 1-2V* [id number] Routine Exams 10/27/21 10:01 Completed Radiology Impressions Pelvis X-Ray 10/27/21 10:01 IMPRESSION: 1. Recent right total hip replacement. Laboratory Results WBC 5.8 10^3/uL (4.0-10.0) 10/22/21 11:05 RBC 4.32 10^6/uL (4.1-5.3) 10/22/21 11:05 Hgb 11.6 g/dL (11.5-15.3) 10/28/21 05:03 Hct 36.4 % (37.0-47.0) L 10/28/21 05:03 MCV 95.6 fl (81-99) 10/22/21 11:05 MCH 30.3 pg (28.0-34.0) 10/22/21 11:05 MCHC 31.7 g/dL (30.0-36.0) 10/22/21 11:05 RDW 12.8 % (12.1-15.1) 10/22/21 11:05 Plt Count 223 10^3/cmm (130-400) 10/22/21 11:05 MPV 9.9 fL (7.4-10.4) 10/22/21 11:05 Neut % (Auto) 57.5 % 10/22/21 11:05 Lymph % (Auto) 29.9 % 10/22/21 11:05 Dupage % (Auto) 9.0 % 10/22/21 11:05 Eos % (Auto) 2.4 % 10/22/21 11:05 Baso % (Auto) 1.0 % 10/22/21 11:05 Neut # (Auto) 3.34 10^3/uL (1.8-7.7) 10/22/21 11:05 Lymph # (Auto) 1.7 10^3/uL (0.8-4.8) 10/22/21 11:05 Dupage # (Auto) 0.5 10^3/uL (0.2-0.9) 10/22/21 11:05 Eos # (Auto) 0.1 10^3/uL (0.0-0.8) 10/22/21 11:05 Baso # (Auto) 0.1 10^3/uL (0.0-0.1) 10/22/21 11:05 Nucleated RBC % (auto) 0 % 10/22/21 11:05 Nucleated RBCs # 0.0 /100WBC 10/22/21 11:05 Sodium 129 mmol/L (136-145) L 10/28/21 05:03 Potassium 4.1 mmol/L (3.5-5.1) 10/28/21 05:03 Chloride 98 mmol/L (98-107) 10/28/21 05:03 Carbon Dioxide 24 mmol/L (22-29) 10/28/21 05:03 Anion Gap 11.1 (5-19) 10/28/21 05:03 BUN 10 mg/dL (8-23) 10/28/21 05:03 Creatinine 0.5 mg/dL (0.5-0.9) 10/28/21 05:03 GFR Calculation Not Reportable 10/28/21 05:03 Glucose 134 mg/dL (65-115) H 10/28/21 05:03 Calculated Osmolality 269 mOsm/kg (285-295) L 10/28/21 05:03 Calcium 8.9 mg/dL (8.5-10.5) 10/28/21 05:03 Total Bilirubin 0.7 mg/dL (0.15-1.2) 10/28/21 05:03 AST 23 U/L (0-32) 10/28/21 05:03 ALT 14 U/L (0-33) 10/28/21 05:03 Alkaline Phosphatase 51 IU/L (35-105) 10/28/21 05:03 Total Protein 5.7 g/dL (6.6-8.7) L 10/28/21 05:03 Albumin 3.5 g/dL (3.5-5.2) 10/28/21 05:03 Globulin 2.2 g/dL (1.3-4.6) 10/28/21 05:03 TSH 3.43 uIU/mL (0.27-4.20) 10/28/21 05:03 Urine Color Yellow (Yellow) 10/22/21 11:09 Urine Appearance Clear (CLEAR) 10/22/21 11:09 Urine pH 7 (5-7) 10/22/21 11:09 Ur Specific Kirkman 1.010 (1.005-1.030) 10/22/21 11:09 Urine Protein Neg (Negative) 10/22/21 11:09 Urine Glucose (UA) Norm (Normal) 10/22/21 11:09 Urine Ketones Negative (Negative) 10/22/21 11:09 Urine Blood Trace (Negative) H 10/22/21 11:09 Urine Nitrate Negative (Negative) 10/22/21 11:09 Urine Bilirubin Neg (Negative) 10/22/21 11:09 Urine Urobilinogen Norm mg/dL (Negative) 10/22/21 11:09 Ur Leukocyte Esterase Negative (Negative) 10/22/21 11:09 Urine RBC None /hpf (0-2) 10/22/21 11:09 Urine WBC None /hpf (0-5) 10/22/21 11:09 Ur Squamous Epith Cells 0-4 /hpf (0-5) H 10/22/21 11:09 Amorphous Sediment Not Reportable 10/22/21 11:09 Urine Bacteria Trace /hpf (NONE) 10/22/21 11:09 Vitals Last Vital Signs Temp 98.1 F 10/29/21 10:50 Pulse 76 10/29/21 10:50 Resp 18 10/29/21 10:50 BP 128/66 10/29/21 10:50 Pulse Ox 96 10/29/21 05:00 Discharge Plan Discharge Patient Disposition: Home Health Service Condition: Stable Prescriptions: New oxycodone 5 mg Tablet 5 mg PO Q4H PRN (Reason: Moderate Pain) 7 Days Qty: 30 0RF acetaminophen 500 mg Tablet 1,000 mg PO Q8H 15 Days Qty: 90 0RF aspirin 325 mg Tablet,Delayed Release (Dr/Ec) 325 mg PO DAILY 30 Days Qty: 0 0RF amlodipine 2.5 mg tablet 2.5 mg PO DAILY Qty: 30 0RF Rx Instructions: Hold medication if Blood Pressure less than 130 (top number). Keep log of pressures for PCP. Continued levothyroxine 75 mcg Tablet 75 mcg PO DAILY 0RF Discharge Orders: Discharge Order (Routine); Ordered 10/29/21 Ordered By: Reyna Acuna Referrals: Reyna Acuna MD [Physician] - 11/11/21 10:00 am Adriana Verduzco MD [Referring] - 7-10 days (Follow up of hypertension during hospital stay. Pressures 200s/100s day of surgery. 2.5 mg of Amlodipine daily was started with good result. Prescription provided and patient instructed to keep blood pressure log.) Discharge Diet: Advance as tolerated and Usual diet Discharge Activity: Limit activity as instructed, Use walker/crutches as instructed and As per PT/OT instructions Patient Instructions: Amlodipine (By mouth), Hypertension (DC), Revision Total Joint Arthroplasty (DC), Opioid Safety, Post Operative Pain Activity Restrictions/Additional Instructions: For Hip Surgery: Ice to right hip. Posterior hip precautions as described. Ambulate weightbearing as tolerated. For High Blood Pressure: Your blood pressures were quite elevated during hospital stay, staying 170s/90s to 200s/100s the first day you were here. Hospitalist medical doctor evaluated you and started 2.5 mg of Amlodipine daily to help with blood pressure control. You blood pressures were better with this medication. Recommend you get a new home blood pressure device that is easier for you to use (wrist models are okay). Check blood pressure daily prior to taking Amlodipine. If the top number is less than 130, do not take the medication. Take it if the number is 130 or higher. Recheck your blood pressure 2 more times later in the day for 1 week (lunchtime and either dinnertime or bedtime), keeping a written record of all blood pressure numbers. If you are not having blood pressures lower than 110 or higher than 160 after one week, you can change to checking prior to medication administration in the morning and one other time during the day (lunchtime or evening). Continue this until follow up with primary care provider who can provide further instructions regarding continued medication use and monitoring needs. Take your blood pressure device, blood pressure written record and your medication bottles with you to follow up appointment with primary care provider. Discharge Attestations Time Spent in Discharge Care*: greater than 30 min Specific Discharge Activities: educating patient, educating and/or supporting family/caregiver, documenting/other paperwork and evaluating patient/reviewing data Quality Metrics Clinical Quality Measures [ No reported AMI, CVA or VTE this stay] Coding Level of Care Code Acute [facility] [place] note Diagnoses Primary osteoarthritis of right hip M16.11 S/P total right hip arthroplasty Z96.641 Hypertension I10 Hypertension type: primary hypertension Hypothermia T68.XXXA Encounter type: initial encounter Hypothyroidism E03.9 Hypothyroidism type: acquired
--- NOTE | 2021-10-29 13:39 | P.PN_ITS ---
Subjective Subjective: Patient seen and examined this morning. Not having any more dizziness. Had a transient moment where things just did not feel right in her head but no recurrence. Denies chest pain or shortness of breath. Pain is controlled adequately with pain medications. Tolerating oral intake and has been up this morning and walked and is doing well from a postoperative standpoint. Medications: Reviewed: Yes Vitals/I&O/Wt Last Vital Signs Temp 98.1 F 10/29/21 10:50 Pulse 76 10/29/21 10:50 Resp 18 10/29/21 10:50 BP 128/66 10/29/21 10:50 Pulse Ox 96 10/29/21 05:00 Selected Entries 10/28/21 10:10 10/28/21 14:29 10/28/21 18:20 Blood Pressure 163/71 124/58 104/56 10/28/21 21:30 10/29/21 05:00 10/29/21 10:50 Blood Pressure 151/67 139/73 128/66 10/28/21 10/29/21 10/29/21 22:59 06:59 14:59 Intake Total 200 / 550 200 / 200 Output Total 950 / 1770 900 / 2670 900 / 900 Balance -750 / -1220 -900 / -2120 -700 / -700 Physical Exam Narrative: Constitutional: Awake, alert, looks like she feels better today Respiratory: No accessory muscle use, speaking in full sentences Cardiovascular: Regular rate and rhythm : Uribe is out Extremities: Surgical site intact to the right hip, no increase edema noted Neuro: Speech is clear, smile is symmetric, strength is equal at both feet with foot pumps Urinary Catheter Management: Uribe: Cath Placed During This Visit: yes, but has since been removed by the nurse Reason for Continuing Indwelling Catheter: Other Urinary Catheter Date of Insertion: 10/27/21 Urinary Catheter Time of Insertion: 07:20 Date Urinary Catheter Removed: 10/28/21 Time Urinary Catheter Discontinued: 13:15 Data : 10/28/21 05:03 10/28/21 05:03 A&P Assessment and plan (1) Hypertension: Amlodipine 2.5mg daily started on 10/27 due to persistent blood pressures 170s to 200s over 90s to 100s on the day of surgery even accounting for things like pain, medications administered and anxiety. Tolerating addition of amlodipine well at this point. I do still wonder if blood pressure elevations are not partially whitecoat syndrome. Reviewed with patient and family that values were high enough to be signifiacant risk factors for stroke, cardiovascular issues such as heart attack or acute CHF and renal dysfunction. Patient and family agreeable to trial of low dose amlodipine. Status: Acute Qualifiers: Hypertension type: primary hypertension Qualified Code(s): I10 - Essential (primary) hypertension (2) S/P total right hip arthroplasty: Elective procedure, postop day 2 Doing well, no more dizziness with standing Post op Hgb was 36 Status: Acute (3) Hypothermia: Transient and possible spurious. No intervention or work up. Status: Resolved Qualifiers: Encounter type: initial encounter Qualified Code(s): T68.XXXA - Hypothermia, initial encounter (4) Hypothyroidism: Chronically on levothyroxine TSH within normal limits at 3.43 Status: Chronic Qualifiers: Hypothyroidism type: acquired Qualified Code(s): E03.9 - Hypothyroidism, unspecified Plan Okay for discharge home from my standpoint Continue amlodipine 2.5 mg daily, see below for detailed instructions given to the paperwork regarding blood pressure management until follow-up with PCP Follow-up with primary care provider Dr. Adriana Verduzco in 1 to 2 weeks for blood pressure check Patient is continue her home levothyroxine DVT prophylaxis aspirin as discussed Reviewed maximum Tylenol instructions, following instructions on the bottle of the specific acetaminophen/Tylenol product that they have with a maximum of 4 g/day (number of tablets allowed per day will depend on the actual product and how much pain medication containing acetaminophen is also taken in the same day). Asked to review with orthopedics use of other [id number] pain medications such as NSAIDs and briefly reviewed habit-forming potential of narcotic pain medications. INSTRUCTIONS TO PATIENT INPUTTED TO DC PAPERWORK BY ME For High Blood Pressure: Your blood pressures were quite elevated during hospital stay, staying 170s/90s to 200s/100s the first day you were here. Hospitalist medical doctor evaluated you and started 2.5 mg of Amlodipine daily to help with blood pressure control. You blood pressures were better with this medication. Recommend you get a new home blood pressure device that is easier for you to use (wrist models are okay). Check blood pressure daily prior to taking Amlodipine. 1) If the top number is less than 130, do not take the medication in the morning. Recheck your blood pressure about 4 hours later and in the evening (8- 12 hours after morning check). At 4 hours later: If blood pressure is greater than 160, go on and take the 2.5mg dose of amlodipine at that time. If blood pressure is less than or equal to 160, do not take the amlodipine. At the evening blood pressure check: If you have already taken amlodipine this day, check and record your blood pressure. ONLY if you have not taken amlodipine this day AND you evening blood pressure is greater than or equal to 180, take 2. 5 mg of amlodipine at the evening blood pressure check. Resume daily plan the next day in the morning. 2) If the top number equals 130 or higher. Take amlodipine 2.5mg as prescribed. Recheck your blood pressure 2 more times later in the day for 1 week (approximately 4 hours after taking medication and sometime in the evening hours). Keep a written record of all blood pressure numbers. If you have blood pressures greater than or equal to 180 on top number despite taking 2.5mg of amlodipine, call primary care provider for instructions (possibly to increase dose to 5 mg daily) or come to emergency room if any associated symptoms suggestive of stroke or heart attack as we discussed. After one week of checking your blood pressures, if you are taking the medication every day in the morning and not having blood pressures lower than 110 or higher than 160 (top number) later in the day, you can change to checking blood pressures prior to taking medication in the morning and then check only one other time during the day (middle of day or in the evening) and simply keeping a record of the numbers. If you have not been taking the medication every day in the morning and have not had any blood pressures greater than or equal to 160 (top number), you can also change to checking only one other time during the day. If you have had some days you take the medication in the morning and others you do not, please continue to check blood pressures 3 times per day. Continue checking blood pressures regularly until follow up with primary care provider who can assist with further instructions regarding continued medication use (or not) and monitoring needs. Take your blood pressure device, blood pressure written record and your medication bottles with you to follow up appointment with primary care provider. If there are questions related to blood pressure medication management between now and your follow up with Dr Verduzco, you can call the hospital during business hours 8-5 M-F and have the sand system operator get in touch with Dr Hopkins. If after hours and an emergency, call 911 or come to the emergency room for evaluation. Attestations Medical Necessity Statement*: Anticipate discharge today Coding Level of Care Code Acute [facility] Diagnoses Hypertension I10 Hypertension type: primary hypertension S/P total right hip arthroplasty Z96.641 Hypothermia T68.XXXA Encounter type: initial encounter Hypothyroidism E03.9 Hypothyroidism type: acquired
== END 2021-10-29 14:05 | disposition home health service (06) ==
LOC: OBGYN 10:19
PROVIDERS: Hospitalist; Admitting Provider Specialist; Visit Provider Specialist
PROC: (CPT 27130; principal; 2021-10-27 07:00)
DX: M16.11 Unilateral primary osteoarthritis, right hip (principal); I10 Essential (primary) hypertension; E03.9 Hypothyroidism, unspecified; T68.XXXA Hypothermia, initial encounter
CPT/HCPCS: 27130; 36415; 51702; 72170; 80053; 81001; 84443; 85014; 85018; 85025; 93005; 97110; 97116; 97161; 97166; 97530; 97535; C1776; G0378; J0690; J1170; J2250; J2405; J2704; J3010; J3370; J3490; J7030

== ENCOUNTER → 2021-11-11 10:19 | Outpatient (BNVA) | payer SELFPAY | PROVIDERS: Visit Provider Specialist | DX: Z96.642 Presence of left artificial hip joint (principal); M16.11 Unilateral primary osteoarthritis, right hip; Z96.641 Presence of right artificial hip joint | CPT/HCPCS: 73502 ==

== ENCOUNTER → 2021-12-30 10:42 | Outpatient (BNVA) | payer SELFPAY | PROVIDERS: Visit Provider Specialist | DX: Z96.641 Presence of right artificial hip joint (principal) | CPT/HCPCS: 73502 ==

== ENCOUNTER → 2022-06-09 10:17 | Outpatient (BNVA) | payer SELFPAY | PROVIDERS: Visit Provider Specialist | DX: Z96.643 Presence of artificial hip joint, bilateral (principal) | CPT/HCPCS: 73502 ==

== ENCOUNTER 2025-02-08 10:05 | Emergency (ER) | payer SELFPAY ==
--- OUTSIDE RECORDS SUMMARY | 2024-05-09 03:20 | XMS_ITS ---
Author Organization [facility] Address [address] [id number] Care Team Providers Care Web Content Producer Name Role Phone Adriana Verduzco Primary Care Provider [phone] Allergies No Known Allergies REASON FOR VISIT 1 yr visit, Raissa Zeng RN, [facility], [facility]2 Medications Medication SIG (Take, Route, Frequency, Duration) Notes Start Date End Date Status Misc Natural Products - as directed Orally Potassium & Magnesium. Active Biotin 10 MG 1 tablet Orally Once a day Active levothryoxine sodium 100 MCG 1 tablet every morning on an empty stomach Orally Once a day for 90 days 05/17/2022 Active Calcium Lactate Monohydrate Active Vitamin D3 Complete - Orally Active Social History Tobacco Use: Social History Observation Description Date Details (start date - stop date) Never Smoker NA - NA Sex Assigned At : Social History Observation Description Sex Assigned At Female - Question Answer Notes Did you have a drink containing alcohol in the p ast year? No Points 0 Interpretation Negative TRUDY Drug Questionnaire Question Answer Notes Have you used drugs other th an those for medical reasons in the past 12 months? No Do you smoke for age 13 and up Question Answer Notes Are you a: never smoker Smokeless Tobacco Question Answer Notes Tobacco use other than smoking No Have you ever had an STD Question Answer Notes Have you ever had an STD No Encounters Encounter Location Date Provider Diagnosis [facility] [address] [place] [id number] 05/09/2024 Adriana Verduzco Hypothyroidism, unspecified type E03.9 and Elevated blood pressure reading R03.0 Assessments Encounter Date Diagnosis (ICD Code) Assessment Notes Treatment Notes Treatment Clinical Notes Section Notes 05/09/2024 Hypothyroidism, unspecified type (ICD-10 - E03.9) 05/09/2024 Elevated blood pressure reading (ICD-10 - R03.0) Plan Of Treatment Next Appt Details Provider Name:Adriana rodrigez, 05/16/2025 08:20:00 AM, [address], [place], [place], [phone], Progress Notes * Len FOSTEROB:11/1944 (79 yo F)Acc No.[id number]:05/09/2024 FaceToFace Patient: Mikki CORBIN Provider: Mitchel Verduzco MD Case Label: Date Of Injury: :1945 A ge:79 Y S ex:Female Date:05/09/2024 Address:[address] [place] [address], [facility], [id number] Patient's Default Facility:[address] [place] [address] Subjective: * Chief Complaints: * 1 . 1 yr visit. 2. Raissa Zeng RN. 3. AHM, PHQ2. 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 Pt declines further evaluation. 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 * OB History: G P G ravida: 1 0, P nida: 8 , A bortion Spontaneous 2 . * Surgical History: O [facility], R THAO, Dr Acuna. September 2021, left THAO 2009, cataract surgery, bilateral 2014,2015. * Hospitalization/Major Diagno stic Procedure: s urgery (hip replacement) 2009, right hip THAO 2021. * Family History: F ather: , diagnosed with Other malignant neoplasm of unspecified site. M other: , Passed from Pneumonia, diagnosed with Other malignant neoplasm of unspecified site. 3 brother(s) , 6 sister(s) - healthy. 3 son(s) , 5 daughter(s) - healthy. . 1 living brother and 2 living sisters. * Social History: T obacco Use 1: D o you smoke for age 13 and up A re you a: n ever smoker. S mokeless Tobacco T obacco use other than smoking N o. E xposed to second hand smoke E xposed to second hand smoke N o. H ealth Literacy Screening: H ow confident are you at filling out medical forms by yourself? 1 . Extremely N o,?2. Quite a bit Y es, 3 . Somewhat N o, 4 . A Little N o, 5 . Not at all?No, D ate of Literacy Screening 1 , P t. Score 2 . S exual History: H ave you ever had an STD H ave you ever had an STD N o. A dult Health Maintenance-: - C ompleted N o -patient declines. M ammogram > 40 Y early N o -patient declines, C ounseled Y es, D ate counseled 0 09/08/2023. P ap i n the last 3 yrs for 21-29 years of age? N o . PAP was wnl 04-23-2013, declines repeat, C ounseled Y es, D ate counseled 0 09/08/2023. F pritesh Shot Y early N o -patient declines, C ounseled Y es, D ate Counseled 0 09/08/2023. T etanus t etanus within the last 5 years N o Patient Declines, C ounseled Y es, D ate Counseled 0 09/08/2023. P neumovax > 65 or high risk N o -patient declines, C ounseled Y es, D ate counseled 0 09/08/2023. Z kenya Vaccine age 50> C ompleted N o Pt declines zostavax and shingrix, C ounseled Y es, D ate Counseled 0 09/08/2023. D iabetic Retinal Eye Exam Y early N o, C ounseled Y es, D ate counseled 0 09/08/2023. C olorectal Cancer Screening C olonoscopy N o -patient declines, C olonoscopy Counseled Y es, C olonoscopy Counseled Date 0 09/08/2023. - D ental Visit Yearly N o, C ounseled Y es, D ate Counseled 0 09/08/2023. B one Density - Postmenopausal D id you have your bone density? N o pt declines. L earning Needs Assessment: L earn Best By V erbal N o, W ritten Y es, D emonstration N o. C ommunication Needs: C ommunication Needs D ifficulty Hearing Y es slightly for age (per patient), D ifficulty with Vision Y es Glasses, D ifficulty with Reading or Writing N o. P re-visit Preparation: D id you do a team huddle D id you do a team huddle Y es. D id you have a E R Visit N o, H ospital Visit N o. F amily History: S ubstance Abuse I s there a family history of substance abuse N o. M ental illness I s there a family history of mental illness N o. D rug/Alcohol: N TREVOR Drug Questionnaire H ave you used drugs other than those for medical reasons in the past 12 months? N o. - D id you have a drink containing alcohol in the past year? N o, P oints 0 , I nterpretation N egative. R eligion/Education: R eligion/Education M arital Status: W idowed, N umber of Adults in Household:?1, N umber of Children in Household: 0 , R eligion: Y es Yazidi. Mennonite, declines health maintenance, L evel of Education: N ot finished High School, P [facility] youth care specialist N o, H [facility] Care Proxy N o. * Medications: T aking levothryoxine sodium 100 MCG Tablet 1 tablet every morning on an empty stomach Orally Once a day , Taking Calcium Lactate Monohydrate , Taking Vitamin D3 Complete - Tablet Orally , Taking Misc Natural Products - Capsule as directed Orally , Notes to Pharmacist: Potassium & Magnesium., Taking Biotin 10 MG Tablet 1 tablet Orally Once a day * Allergies: N .K.D.A. Objective: * Vitals: Assessment: * Assessment: 1. H ypothyroidism, unspecified type - E03.9 2 . E levated blood pressure reading - R03.0 Plan: * Treatment: Value Reference Range F REE T4 INDEX (T7) 3.1 1.4-3.8 - * T 3 UPTAKE 34 22-35 - % * T 4 (THYROXINE), TOTAL 9.2 5.1-11.9 - mcg/dL * T SH, 3RD GENERATION 0.03 L 0.40-4.50 - mIU/L * Blaire Buchanan 05/16/2024 09:13 :54 AM CDT >Adriana Verduzco 05/17/2024 08:08:42 AM CDT >wnl (on meds), continue current dose Evy Lane RN 05/17/2024 04:27:20 PM CDT > Contacted patient and notified of above lab test result and information. Patient verbalized understanding, and will continue the current dose of her medication. Instructed to call with further needs. 2.?Elevated blood pressure reading?LAB: [facility]-Shawna/Eusebio/[place]herry/[place]/[facility] ONLY (Ordered for 05/09/2024) (Collection Date & Time - 05/16/2024 09:13 AM)?Normal* Value Reference Range e GFR 81.71 >60.00 - mL/min/1.73 m2 * G PRITESH 93 70-110 - mg/dl * A LB 4.2 3.5-5.5 - g/dl * A LP 64 38-126 - U/L * A LT 22 0-35 - U/L * A ST 26 10-42 - U/L * B UN 21.00 7.00-25.00 - mg/dL * C A 9.9 8.4-10.4 - mg/dl * C L 99.0 98.0-110.0 - mmol/L * C O2 29.000 22.000-35.000 - mmol /L * C REAT 0.73 0.60-1.20 - mg/dL * K 4.0 3.5-5.1 - mmol/L * N A 134.0 L 135.0-146.0 - mmol/L * T BILI 0.800 <1.000 - mg/dL * T P 7.4 6.4-8.3 - g/dL * Blaire Buchanan 05/16/2024 09:13 :43 AM CDT >Adriana Verduzco P 05/16/2024 10:04:41 AM CDT > ---reviewed in clinic with patient ?LAB: CBC, Diff, Automated (Ordered for 05/09/2024) (Collection Date & Time - 05/16/2024 09:13 AM)?Normal* Value Reference Range M ID-2 0.6 0.2-1.1 - K/ uL * G RAN 3.9 2.0-7.0 - K/uL * G RAN% 58.1 45.0-75.0 - % * H CT 39.3 35.0-45.0 - % * H GB 13.5 11.7-15.5 - g/dl * L YM-1 2.2 0.6-4.1 - 10^3 / uL * L YMPH% 33.7 10.0-58.8 - % * M CH 30.2 26.0-32.0 - pg * M CHC 34.4 31.0-36.0 - g/dl * M CV 87.6 80.0-97.0 - fl * M IDS% 8.2 1.0-10.0 - % * M PV 8.1 7.0-11.0 - fl * P LT 243 140-440 - K/dl * R BC 4.48 4.20-6.30 - M/uL * R DW 12.1 11.5-14.5 - % * W BC 6.7 4.0-10.9 - K/uL * Blaire Buchanan 05/16/2024 09:13 :49 AM CDT >Adriana Verduzco P 05/16/2024 10:00:37 AM CDT > ---reviewed in clinic with patient Care Plan: * Problems: * Billing Information: * Visit Code: * Procedure Codes: * Electronic signature of Ewelina Verduzco MD on 02/08/2025 at 10:16 AM CDT Sign off status: Pending * Provider: Mitchel Verduzco MD Date: 1 Generated for Printi ng/Faxing/eTransmitting on: 0 02/08/2025 10:16 AM CDT
--- OUTSIDE RECORDS SUMMARY | 2025-02-08 10:17 | XMS_ITS | Data Portability ---
Author Organization [facility] Address [address] [place] [address] Assessment Encounter Date Assessment Date Assessment LastModified by Organization Details LastModified Time 01/17/2019 01/17/2019 Eucrisa sample given to patient- apply twice daily Not available 01/17/2019 11:53:09 03/13/2019 03/13/2019 lab discussed with pt, no office charge today Not available 03/13/2019 11:06:03 Plan of Treatment Reminders Order Date Submit Date Provider Last Modified By Organization Details Last Modified Time Details Appointments None recorde d. Lab BMP, blood 019 03/13/20 Not available 9 16:37:35 BMP, blood 019 01/18/20 Not available 9 12:55:32 TSH, ultra-s ensitiv e, serum 018 10/27/19 18 [facility], [address] [facility], [place] [address] [place] [address], [address], 8 21:12:52 TSH, ultra-s ensitiv e, serum 018 08/23/19 18 [facility], [address], [place], [address], 8 23:13:30 T4, free, serum 018 08/23/19 18 [facility], [address] [facility], [place], [address], 8 23:13:27 CBC w/ diff 018 08/23/19 18 Not available 8 11:29:54 TSH, ultra-s ensitiv e, serum 017 06/16/20 17 [facility], [address] [facility] [address], [address], 7 08:58:03 Referral None recorde d. Procedures None recorde d. Surgeries None recorde d. Imaging None recorde d. Medication Orders None recorde d. Patient TargetsNo targets recorded. Patient Instructions Encounter Date Encounter Id Patient Instructions Last Modified By Organization Details Last Modified Time 01/17/2019 [id number] Eczema: Care Instructions Not available 01/17/2019 12:55:32 hypokalemia: car e instructions Not available 01/17/2019 12:52:41 Reason for Referral None Reported. Results Created Date Observation Date Name Description Value Unit Range Abnormal Flag Note LastModifiedBy Organization Detail LastModifiedTime 06/16/20 17 06/16/2017 TSH TSH 14.90 uIU/m L 0.465- 4.68 above high normal Not Available [address], [address], 06/16/2017 22:11:06 08/23/19 18 08/23/2017 T4, free, serum T4,free(dire ct) 0.82 NG/dL 0.78-2 .19 Not Available [address], [address], 08/23/2017 23:13:27 08/23/19 18 08/23/2017 TSH TSH 10.10 uIU/m L 0.465- 4.68 above high normal Not Available [address], [address], 08/23/2017 23:13:30 08/23/19 18 08/23/2017 CBC w/ diff WBC 7.2 10^3/ uL 4.1-10 .9 Not Available [address], [address], 08/23/2017 11:17:43 08/23/19 18 08/23/2017 CBC w/ diff lym 1.8 10^3/ uL 0.6-4. 1 Not Available [address], [address], 08/23/2017 11:17:43 08/23/19 18 08/23/2017 CBC w/ diff mid 0.7 10^3/ uL 0.0-1. 8 Not Available [address], [address], 08/23/2017 11:17:43 08/23/19 18 08/23/2017 CBC w/ diff gra 4.8 10^3/ uL 2.0-7. 8 Not Available [address], [address], 08/23/2017 11:17:43 08/23/19 18 08/23/2017 CBC w/ diff lym% 24.8 % 10.0-5 8.5 Not Available [address], [address], 08/23/2017 11:17:43 08/23/19 18 08/23/2017 CBC w/ diff mid% 9.2 % 0.1-24 .0 Not Available [address], [address], 08/23/2017 11:17:43 08/23/19 18 08/23/2017 CBC w/ diff gra% 66.0 % 37.0-9 2.0 Not Available [address], [address], 08/23/2017 11:17:43 08/23/19 18 08/23/2017 CBC w/ diff RBC 4.46 10^6/ uL 2.50-6 .30 Not Available [address], [address], 08/23/2017 11:17:43 08/23/19 18 08/23/2017 CBC w/ diff HGB 13.7 g/dL 12.0-1 8.0 Not Available [address], [address], 08/23/2017 11:17:43 08/23/19 18 08/23/2017 CBC w/ diff HCT 43.9 % 33.0-5 1.0 Not Available [address], [address], 08/23/2017 11:17:43 08/23/19 18 08/23/2017 CBC w/ diff MCV 98.5 fL 85.7-9 8.7 Not Available [address], [address], 08/23/2017 11:17:43 08/23/19 18 08/23/2017 CBC w/ diff MCH 30.7 pg 28.5-3 4.5 Not Available [address], [address], 08/23/2017 11:17:43 08/23/19 18 08/23/2017 CBC w/ diff MCHC 31.2 g/dL 31.0-3 6.0 Not Available [address], [address], 08/23/2017 11:17:43 08/23/19 18 08/23/2017 CBC w/ diff RDW 13.0 % 11.5-1 7.0 Not Available [address], [address], 08/23/2017 11:17:43 08/23/19 18 08/23/2017 CBC w/ diff plt 341 10^3/ uL 140-44 0 Not Available [address], [address], 08/23/2017 11:17:43 08/23/19 18 08/23/2017 CBC w/ diff MPV 7.3 fL 0.0-50 .0 Not Available [address], [address], 08/23/2017 11:17:43 10/27/19 18 10/26/2017 TSH TSH 0.07 uIU/m L 0.465- 4.68 below low normal Not Available [address], [address], 10/26/2017 21:12:52 01/18/20 19 01/17/2019 BMP, blood glu 92 mg/dL 73-118 Not Available [address], [address], 01/17/2019 11:37:21 01/18/20 19 01/17/2019 BMP, blood BUN 10 mg/dL 7-22 Not Available [address], [address], 01/17/2019 11:37:21 01/18/20 19 01/17/2019 BMP, blood Ca 9.7 mg/dL 8.0-10 .3 Not Available [address], [address], 01/17/2019 11:37:21 01/18/20 19 01/17/2019 BMP, blood cre 0.6 mg/dL 0.6-1. 2 low Not Available [address], [address], 01/17/2019 11:37:21 01/18/20 19 01/17/2019 BMP, blood Na+ 142 mmol/ L 128-14 5 Not Available [address], [address], 01/17/2019 11:37:21 01/18/20 19 01/17/2019 BMP, blood K+ 3.5 mmol/ L 3.6-5. 1 low Not Available [address], [address], 01/17/2019 11:37:21 01/18/20 19 01/17/2019 BMP, blood cL- 99 mmol/ L 98-108 Not Available [address], [address], 01/17/2019 11:37:21 01/18/20 19 01/17/2019 BMP, blood TCO2 32 mmol/ L 18-33 Not Available [address], [address], 01/17/2019 11:37:21 03/13/20 19 03/13/2019 BMP, blood glu 79 mg/dL 73-118 Not Available [address], [address], 03/13/2019 10:10:35 03/13/20 19 03/13/2019 BMP, blood BUN 14 mg/dL 7-22 Not Available [address], [address], 03/13/2019 10:10:35 03/13/20 19 03/13/2019 BMP, blood Ca 9.4 mg/dL 8.0-10 .3 Not Available [address], [address], 03/13/2019 10:10:35 08/13/20 19 03/13/2019 BMP, blood cre 0.8 mg/dL 0.6-1. 2 Not Available [address], [address], 03/13/2019 10:10:35 03/13/20 19 03/13/2019 BMP, blood Na+ 140 mmol/ L 128-14 5 Not Available [address], [address], 03/13/2019 10:10:35 03/13/20 19 03/13/2019 BMP, blood K+ 3.9 mmol/ L 3.6-5. 1 Not Available [address], [address], 03/13/2019 10:10:35 03/13/20 19 03/13/2019 BMP, blood cL- 102 mmol/ L 98-108 Not Available [address], [address], 03/13/2019 10:10:35 03/13/20 19 03/13/2019 BMP, blood TCO2 33 mmol/ L 18-33 Not Available [address], [address], 03/13/2019 10:10:35 Result Notes None recorded. Problems Name Problem SNOMED Code Status Onset Date Resolution Date Notes Provider Name and Address Organization Details Recorded Time Hypothyroidism 76571049 Active 1984 Juliet nugent [facility] 7 14:20:21 Problem Notes None recorded. Procedures Surgical History Date Name Laterality Status Provider Name and Address Organization Details Recorded Time total replacement of hip completed Sadafangelina Diallo [facility] 01/17/2019 11:03:38 repair of retina completed Sadafangelina Diallo [facility] 01/17/2019 11:03:55 Imaging Results None recorded. Procedure Notes None recorded. Medical Equipment None Reported. Allergies No known drug allergies Medications Name Sig Start Date Stop Date Status Note LastModified by Organization Details LastModified Time levothyroxine 25 mcg tablet Take 1 tablet every day by oral route for 30 days. 01/23 completed Not Available Not Available Not Available levothyroxine 75 mcg tablet Take 1 tablet every day by oral route. 2017 active Not Available Not Available Not Avai lable levothyroxine 100 mcg tablet Take 1 tablet every day by oral route. 01/23 completed Not Available Not Available Not Available levothyroxine 50 mcg tablet Take 1 tablet every day by oral route. 01/23 completed Not Available Not Available Not Available Vitals Date Recorded Body weight Body mass index (BMI) Body height Heart rate Respiratory rate Body temperature Systolic And Diastolic Provider Name and Address Organization Details Last Updated DateTime 9 21030.9 2 g 22.4 kg/m2 161.29 cm 68 /min 18 /min 98 [degF] 132/74 mm[Hg] Sadaf bridges [facility] 9 11:01:08 Date Recorded Body height Body mass index (BMI) Body weight Body temperature Respiratory rate Heart rate Systolic And Diastolic Provider Name and Address Organization Details Last Updated DateTime 9 161.29 cm 22 kg/m2 51476.6 4 g 98 [degF] 18 /min 68 /min 118/68 mm[Hg] Sadaf bridges [facility] 9 10:39:31 Social History Question Answer Notes LastModified by Organizat ion Details LastModified Time Tobacco Smoking Status Never Smoker Sadaf Diallo [facility] 01/17/2019 11:02:46 How Often Do You Need To Have Someone Help You When You Read Instructions, Pamphlets, Or Other Written Material From Your Doctor Or Pharmacy? 1-Never Information not available 01/17/2019 What Was The Date Of Your Most Recent Tobacco Screening? 01/17/2019 Information n ot available 02/21/2019 How Much Tobacco Do You Smoke? No Information not available 03/13/2019 Sex: Unknown Functional Status Question Answer Note LastModified by Organizat ion Details LastModified Time Do you or have you ever used smokeless tobacco? Never used smokeless tobacco [email or web address] Information not available 03/13/2019 Do you or have you ever used e-cigarettes or vape? Never used electronic cigarettes [email or web address] Information not available 03/13/2019 Mental Status None recorded. Family History Relationship Description Onset Age of this Age Resolved Age Notes LastModified by Organization Details LastModified Time Father No current problems or disability [email or web address] Not available 11:02:42 Mother No current problems or disability [email or web address] Not available 11:02:42 Medical History No medical history recorded. Gynecological History Statement/Question Response Abnormal Pap N On BCP's at Conception? N Post Menopausal Bleeding N STIs/STDs N HPV Vaccine N Age at Menarche 14 Current Control Method Menopause Age at First Child 24 Sexually Active? N Sexual Problems? N LMP Unknown Desired Control Method None Hormone Replacement Therapy N Obstetrics History GPAL:G 8 P 8 0 2 8 Type Value Full Term 8 Spontaneous 2 Living 8 Total 8 Past Encounters Encounter ID Performer Location Encounter Start Date Encounter Closed Date Diagnosis/Indication Diagnosis SNOMED-CT Code Diagnosis ICD10 Code Diagnosis Note [id number] Joellen Torres APRN [address] [address] 04/20/2017 14:10:43 04/20/2017 14:47:48 Hypothyroidism 51582368 E03.9 [id number] Joellen Torres APRN [address] [address] 06/16/2017 11:15:42 06/16/2017 14:38:10 Hypothyroidism 33479372 E03.9 [id number] Joellen Torres APRN [address] [address] 08/23/2017 11:10:52 08/23/2017 11:26:51 Hypothyroidism 51988974 E03.9 Fatigue 62173094 R53.83 [id number] Joellen Torres APRN [address] [address] 10/26/2017 10:52:17 10/26/2017 11:24:21 Hypothyroidism 02609462 E03.9 [id number] Joellen FarfanLYNN rueda [address] [address] 01/17/2019 10:51:12 01/17/2019 12:13:43 Eczema 88343362 L30.9 L25.9 may use eucrisa sampleuse hydrocorti sone cream BID, take claritin dailycall or return to clinic if symptoms worsen Cramp in lower limb 4499 [address] R25.2 Hypokalemia 91404172 E87 .6 discussed with patient to increase potassium rich foods into diet and handout given and discussed with patient [id number] Joellen Torres APRN [address] [address] 03/13/2019 09:43:55 03/13/2019 11:07:17 Hypokalemia 77552768 E87.6 discussed with patient to continue potassium rich foods in diet Health Concerns Section Related Observation LastModified by Organization Detai ls LastModified Time None Recorded Concern Status LastModified by Organization Details LastModified Time None Recorded Advance Directives Directive None Recorded Payers Insurance Date Sequence Insurance Name Policy Number Policy Jackson Covered Member ID Jackson Member ID Guarantor Name 03/17/2019 SLIDING FEE SCHEDULE - DISCOUNT Mikki Shore 06/16/2017 1 *SELF PAY* Alex Shore Notes Date Note Type Note Provider Name and Address Organization Details Recorded Time 01/17/2019 text/html Patient presents today with complaints of red scaly rash on her anterior forearms that started around 1 month ago. States that she has been barb lotrimin cream and this helps some but arms continue to itch. Patient states that she has been having increased leg cramps over the last few months. States she has had loose BM also- advised to increase fiber into diet to help with loose BM, return if symptoms continue [place] [facility] 01/23/2019 17:01:03 03/13/2019 text/html Patient presents today for follow up on her hypokalemia. She states that her leg cramps have greatly improved. [place] [facility] 03/18/2019 14:41:15 OBGyn Episode No OBEpisode recorded.
--- OUTSIDE RECORDS SUMMARY | 2025-02-08 10:17 | XMS_ITS | Patient Health Record ---
Author Organization [address] [place] [address] [facility] Address [address] [place] [id number] Care Team Providers Care Internal Medicine Hospitalist Name Role Phone Verduzco Adriana Primary Care Provider [phone] Allergies No Known Allergies Results Component Value Reference Range Notes Thyroid Panel with TSH Reviewed date:05/17/2024 04:35:29 PM Interpretation:Normal Performing Lab: Notes/Report: [facility] Testing performed at: [facility], [address] [place], [address], Manager Wind: Rochelle Ulloa MD [facility] Collection Date/Time: [id number] [facility] Results Received Date/Time: [id number] [facility] Reported Date/Time: [id number] Testing performed by reference lab. T3 UPTAKE 34 22-35 % T4 (THYROXINE), TOTAL 9.2 5.1-11.9 mcg/dL FREE T4 INDEX (T7) 3.1 1.4-3.8 TSH 0.03 0.40-4.50 mIU/L CBC, Diff, Automated Reviewed date:05/16/2024 10:00:50 AM Interpretation:Normal Performing Lab: Notes/Report: Testing performed at the [address] [place] [address] location. [facility] ONLY Reviewed date:05/16/2024 10:05:45 AM Interpretation:Normal Performing Lab: Notes/Report: Testing performed at the [address] [place] [address] location. Reason For Referral No Information Medications Medication SIG (Take, Route, Frequency, Duration) Notes Start Date End Date Status Misc Natural Product for BP Active Vitamin D3 Complete - Orally Active Calcium Lactate Monohydrate Active Misc Natural Products - as directed Orally Potassium & Magnesium. Active levothryoxine sodium 100 MCG 1 tablet every morning on an empty stomach Orally Once a day for 90 days 05/17/2022 Active Misc Natural Product wheat grass liquid Active Biotin 10 MG 1 tablet Orally Once a day Active Social History Tobacco Use: Social History Observation Description Date Details (start date - stop date) Never Smoker NA - NA Sex Assigned At : Social History Observation Description Sex Assigned At Female TRUDY Drug Questionnaire Question Answer Notes Have you used drugs other th an those for medical reasons in the past 12 months? No Smokeless Tobacco Question Answer Notes Tobacco use other than smoking No Have you ever had an STD Question Answer Notes Have you ever had an STD No Tobacco Control (Standard) Question Answer Notes Tobacco use: Nonsmoker AUDIT-C (Standard) Question Answer Notes Did you have a drink containing alcohol in the p ast year? No Points 0 Interpretation Negative Problems Problem Type SNOMED Code ICD Code Onset Dates Problem Status W/U Status Risk Notes Problem 704423419 Menopause (Z78.0) Active confirmed Problem 549261734 Gastroesophageal reflux disease, esophagitis presence not specified (K21.9) Active confirmed Problem 583672614 Primary osteoarthritis, unspecified site (M19.91) Active confirmed Problem 75356426 Hypothyroidism, unspecified type (E03.9) Active confirmed Vital Signs Heart Rate 62 /min 05/16/2024 She has not yet taken her medicine this morning and she worried that her commercial front load driver might make her late for her appointment. Temperature 97.5 degrees Fahrenheit 05/16/2024 She has not yet taken her medicine this morning and she worried that her commercial front load driver might make her late for her appointment. Respiratory Rate 18 /min 05/16/2024 She has not yet taken her medicine this morning and she worried that her commercial front load driver might make her late for her appointment. Oximetry 99 05/16/2024 She has not yet taken her medicine this morning and she worried that her commercial front load driver might make her late for her appointment. Blood pressure diastolic 82 mm Hg 05/16/2024 She has not yet taken her medicine this morning and she worried that her commercial front load driver might make her late for her appointment. Weight-kg 56.16 Kg 05/16/2024 She has not yet taken her medicine this morning and she worried that her commercial front load driver might make her late for her appointment. Height 63.3 in 05/16/2024 She has not yet taken her medicine this morning and she worried that her commercial front load driver might make her late for her appointment. Blood pressure systolic 138 mm Hg 05/16/2024 She has not yet taken her medicine this morning and she worried that her commercial front load driver might make her late for her appointment. Weight 123.8 lbs 05/16/2024 She has not yet taken her medicine this morning and she worried that her commercial front load driver might make her late for her appointment. BMI 21.72 kg/m2 05/16/2024 She has not yet taken her medicine this morning and she worried that her commercial front load driver might make her late for her appointment. Encounters Encounter Location Date Provider Diagnosis [address] [place] [address] [address] [place], [place] [id number] 05/16/2024 Adriana Verduzco Primary osteoarthrit is, unspecified site M19.91 ; Hypothyroidism, unspecified type E03.9 ; Gastroesophageal reflux disease, esophagitis presence not specified K21.9 ; Menopause Z78.0 and Elevated blood pressure reading R03.[address] [place] [address] AUGIE [address] [place], [place] [id number] 06/19/2024 Adriana Verduzco Assessments Encounter Date Diagnosis (ICD Code) Assessment Notes Treatment Notes Treatment Clinical Notes Section Notes 05/16/2024 Primary osteoarthritis, unspecified site (ICD-10 - M19.91) Take a warm shower or bath in the morning to relieve stiffness. Avoid sitting still afterwards. -If the joint is not swollen, use moist heat, like a warm, damp towel, for 20 to 30 minutes, 2 or 3 times a day. Do not use heat on a swollen joint. -If the joint is swollen, use ice or cold packs for 10 to 20 minutes, once an hour. Cold will help relieve pain and reduce inflammation. Put a thin cloth between the ice and your skin. -To prevent stiffness, gently move the joint through its full range of motion several times a day. -If the joint hurts, avoid activities that put a strain on it for a few days. Take rest breaks throughout the day. -Get regular exercise. Walking, swimming, yoga, biking, austin chi, and water aerobics are good exercises that are gentle on the joints. -Reach and stay at a healthy weight. If you need to lose or maintain weight, regular exercise and a healthy diet will help. Extra weight can strain the joints, especially the knees and hips, and make the pain worse. Losing even a few pounds may help. 05/16/2024 Hypothyroidism, unspecified type (ICD-10 - E03.9) Take your thyroid hormone medicine exactly as prescribed. Call your doctor if you think you are having a problem with your medicine. Most people do not have side effects if they take the right amount of medicine regularly. *Take the medicine 30 minutes before breakfast, and do not take it with calcium, vitamins, or iron. *Do not take extra doses of your thyroid medicine. It will not help you get better any faster, and it may cause side effects. *If you forget to take a dose, do NOT take a double dose of medicine. Take your usual dose the next day. *Tell your doctor about all prescription, herbal, or rlux-vmn-naiophi products you take. *Take care of yourself. Eat a healthy diet, get enough sleep, and get regular exercise. When should you call for help? Call 911 anytime you think you may need emergency care. For example, call if: *You passed out (lost consciousness). *You have severe trouble breathing. *You have a very slow heartbeat (less than 60 beats a minute). You have a low body temperature (95 degrees F or below). Call your doctor now or seek immediate medical care if: *You feel tired, sluggish, or weak. *You have trouble remembering things or concentrating. *You do not begin to feel better 2 weeks after starting your medicine. Watch closely for changes in your health, and be sure to contact your doctor if you have any problems. 05/16/2024 Gastroesophageal reflux disease, esophagitis presence not specified (ICD-10 - K21.9) Change your eating habits. -It's best to eat several small meals instead of two or three large meals. -After you eat, wait 2 to 3 hours before you lie down. -Chocolate, mint, and alcohol can make GERD worse. -Spicy foods, foods that have a lot of acid (like tomatoes and oranges), and coffee can make GERD symptoms worse in some people. If your symptoms are worse after you eat a certain food, you may want to stop eating that food to see if your symptoms get better. -Do not smoke or chew tobacco. Smoking can make GERD worse. If you need help quitting, talk to your doctor about stop-smoking programs and medicines. These can increase your chances of quitting for good. -If you have GERD symptoms at night, raise the head of your bed 6 to 8 inches by putting the frame on blocks or placing a foam wedge under the head of your mattress. (Adding extra pillows does not work.) -Do not wear tight clothing around your middle. -Lose weight if you need to. Losing just 5 to 10 pounds can help. 05/16/2024 Menopause (ICD-10 - Z78.0) How can you care for yourself at home? *Limit fats in your diet. *Choose foods that have a lot of calcium. The recommended daily intake for adults ages 19 to 50 is 1,000 milligrams (mg). Adults over 50 need 1,200 mg a day. If you don't get enough calcium in the foods you eat, ask your doctor if taking a supplement is right for you. *Add vitamin D to your daily diet. It helps your body use calcium. The recommended daily intake of vitamin D is 600 international units (IU) a day for children and adults up to age 70. Adults age 71 and older need 800 IU a day. If you don't get enough vitamin D in the foods you eat, ask your doctor if taking a supplement is right for you. *Include good sources of fiber in your diet each day. These include whole grains, beans, fruits, and vegetables. *Avoid simple sugars. This helps if you have mood swings, anxiety, or depression. *Avoid caffeine, or cut back on it. Caffeine can cause sleep problems. It can also make you feel anxious. To relieve these symptoms, pay attention to how much caffeine you are getting in drinks and chocolate. *Limit your intake of alcohol. For some women, drinking may make symptoms worse. 05/16/2024 Elevated blood pressure reading (ICD-10 - R03.0) It's normal for blood pressure to go up and down throughout the day. But if it stays up, you have high blood pressure. Another name for high blood pressure is hypertension. For diagnosis, the top number may be 130 to 140 or higher. The bottom number may be 80 to 90 or higher. Despite what a lot of people think, high blood pressure usually doesn't cause headaches or make you feel dizzy or lightheaded. It usually has no symptoms. But it does increase your risk of stroke, heart attack, and other problems. You and your doctor will talk about your risks of these problems based on your blood pressure. Your doctor will give you a goal for your blood pressure. Your goal will be based on your health and your age. Lifestyle changes, such as eating healthy and being active, are always important to help lower blood pressure. You might also take medicine to reach your blood pressure goal. Follow-up care is a griffin part of your treatment and safety. Be sure to make and go to all appointments, and call your doctor if you are having problems. It's also a good idea to know your test results and keep a list of the medicines you take. How can you care for yourself at home? Medical treatment If you stop taking your medicine, your blood pressure will go back up. You may take one or more types of medicine to lower your blood pressure. Be safe with medicines. Take your medicine exactly as prescribed. Call your doctor if you think you are having a problem with your medicine. Talk to your doctor before you start taking aspirin every day. Aspirin can help certain people lower their risk of a heart attack or stroke. But taking aspirin isn't right for everyone, because it can cause serious bleeding. See your doctor regularly. You may need to see the doctor more often at first or until your blood pressure comes down. If you are taking blood pressure medicine, talk to your doctor before you take decongestants or anti-inflammatory medicine, such as ibuprofen. Some of these medicines can raise blood pressure. Learn how to check your blood pressure at home. Lifestyle changes Stay at a healthy weight. This is especially important if you put on weight around the waist. Losing even 10 pounds can help you lower your blood pressure. If your doctor recommends it, get more exercise. Walking is a good choice. Bit by bit, increase the amount you walk every day. Try for at least 30 minutes on most days of the week. You also may want to swim, bike, or do other activities. Avoid or limit alcohol. Talk to your doctor about whether you can drink any alcohol. Try to limit how much sodium you eat to less than 2,300 milligrams (mg) a day. Your doctor may ask you to try to eat less than 1,500 mg a day. Eat plenty of fruits (such as bananas and oranges), vegetables, legumes, whole grains, and low-fat dairy products. Lower the amount of saturated fat in your diet. Saturated fat is found in animal products such as milk, cheese, and meat. Limiting these foods may help you lose weight and also lower your risk for heart disease. Do not smoke. Smoking increases your risk for heart attack and stroke. If you need help quitting, talk to your doctor about stop-smoking programs and medicines. These can increase your chances of quitting for good. When should you call for help? Call 911 anytime you think you may need emergency care. This may mean having symptoms that suggest that your blood pressure is causing a serious heart or blood vessel problem. Your blood pressure may be over 180/120. For example, call 911 if: You have symptoms of a heart attack. These may include: Chest pain or pressure, or a strange feeling in the chest. Sweating. Shortness of breath. Nausea or vomiting. Pain, pressure, or a strange feeling in the back, neck, jaw, or upper belly or in one or both shoulders or arms. Lightheadedness or sudden weakness. A fast or irregular heartbeat. You have symptoms of a stroke. These may include: Sudden numbness, tingling, weakness, or loss of movement in your face, arm, or leg, especially on only one side of your body. Sudden vision changes. Sudden trouble speaking. Sudden confusion or trouble understanding simple statements. Sudden problems with walking or balance. A sudden, severe headache that is different from past headaches. You have severe back or belly pain. Do not wait until your blood pressure comes down on its own. Get help right away. Call your doctor now or seek immediate care if: Your blood pressure is much higher than normal (such as 180/120 or higher), but you don't have symptoms. You think high blood pressure is causing symptoms, such as: Severe headache. Blurry vision. Watch closely for changes in your health, and be sure to contact your doctor if: Your blood pressure measures higher than your doctor recommends at least 2 times. That means the top number is higher or the bottom number is higher, or both. You think you may be having side effects from your blood pressure medicine. 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 September 2021 left THAO 2009 cataract surgery, bilateral 2014,2015 Hospitalization History Reason Date(Month/Year) right hip [facility]AO 2021 surgery (hip replacement) 2009
[2025-02-08 10:21] VITALS: BP 231/109; PULSE 72; RESP 16; TEMP 36.7; O2SAT 96
--- NOTE | 2025-02-08 10:35 | ECG_ITS ---
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 Measurements Intervals [place] Rate: 67 P: 72 MI: 184 QRS: 27 QRSD: 96 T: 64 QT: 407 QTc: 430 Interpretive Statements SINUS RHYTHM LEFT ATRIAL ENLARGEMENT [-0.15mV P-WAVE IN V1/V2] INCOMPLETE RIGHT BUNDLE BRANCH BLOCK [90+ ms QRS DURATION, TERMINAL R IN V1/V2, 40+ ms S IN I/aVL/V4/V5/V6] MINIMAL ST DEPRESSION [0.025+ mV ST DEPRESSION] Compared to ECG 10/27/2021 15:50:20 ST (T wave) deviation now present Electronically Signed On 02-08-2025 15:06:08 CDT by Joseph Gutierrez M.D. [email or web address]
[2025-02-08 10:41] VITALS: BP 215/107; O2SAT 96
--- NOTE | 2025-02-08 10:46 | XRR_ITS ---
PROCEDURE INFORMATION: Exam: XR Chest Exam date and time: 02/08/2025 11:15 AM Age: 79 years old Clinical indication: Pain; Angina pectoris; Additional info: Chest pain TECHNIQUE: Imaging protocol: Radiologic exam of the chest. Views: 1 view. COMPARISON: No relevant prior studies available. FINDINGS: Tubes, catheters and devices: EKG leads. Lungs: Pulmonary hyperinflation is seen. There is no indication of mass lesion, pneumonia, or pulmonary vascular congestion. Pleural spaces: Unremarkable. No pleural effusion. No pneumothorax. Heart/Mediastinum: Unremarkable. No cardiomegaly. Vasculature: Mild aortic calcification and tortuosity is are seen without suspected aneurysm. Bones/joints: Unremarkable. XR/XR chest 1V portable [id number] IMPRESSION: 1. Hyperinflated lungs suggesting underlying COPD. 2. No acute cardiopulmonary pathology is suspected.
--- NOTE | 2025-02-08 10:46 | XRR_ITS ---
PROCEDURE INFORMATION: Exam: XR Thoracic Spine Exam date and time: 02/08/2025 11:18 AM Age: 79 years old Clinical indication: Pain in thoracic spine TECHNIQUE: Imaging protocol: Radiologic exam of the thoracic spine. Views: 3 views. COMPARISON: CR XR chest 1V portable [id number] 02/08/2025 11:15 AM FINDINGS: Bones/joints: AP lateral and swimmer's views were generated. There are 12 rib-bearing thoracic vertebra present. A midthoracic mild levoconvex scoliosis is present. More prominent thoracolumbar dextroconvex curvature is seen. There is diffuse osteopenia. An increase in thoracic kyphosis is noted. There is no fracture, lytic, or blastic lesion. There is diffuse mild disc space narrowing. Soft tissues: Unremarkable. Vasculature: Aortic atheromatous calcifications are seen without aneurysm or dissection. The visible portions lungs are unremarkable. XR/XR thoracic spine 3V* [id number] IMPRESSION: 1. Osteopenia and senile kyphosis. 2. No acute musculoskeletal pathology is evident. 3. Multidirectional scoliosis
--- NOTE | 2025-02-08 10:47 | W.ED.BACK ---
HPI - Back Pain/Injury General: Chief Complaint: Back Pain/Injury Stated Complaint: Back shoulder pain Time Seen by Provider: 02/08/25 10:33 Source: patient and family Mode of arrival: ambulatory Limitations: no limitations History of Present Illness: Patient is a 79-year-old female presents to ED today along with family for evaluation of right sided back pain. Patient states pain started on Tuesday (4-5 days ago). No known obvious injury or trauma but later states she may have been reaching for something. Patient states since then she has seen a chiropractor who told her her ribs were out of place and performed an adjustment. Patient states this did give her temporary relief. She states pain has waxed and waned throughout the week. She states she does have. Where she is pain-free. She is currently wearing a lidocaine patch which seems to be helping. She is currently rating her pain at a 2/10. No radicular discomfort. She is not complaining of chest or abdominal pain. Upon arrival, blood pressure significantly elevated at 231/109. Patient states she will occasionally check her blood pressures at home and feels like it usually runs in the 140s . She does have previous documentation here back in 2021 while she was admitted for surgery-she had blood pressure systolically over 200. Patient states she treats her hypertension with a natural medication . elicited complaint: back pain Onset (ago): day(s) Timing: intermittent Pain scale (0-10): 2 Location: right upper back Radiation: none Exacerbating factors: movement Relieving factors: other (lidocaine patch, chiropractor, sitting still) Associated symptoms: Reports no associated symptoms; Deny abdominal pain, chills, dysuria, fatigue, fever(s), hematuria or syncope Related Data Home Medications ?Medication ?Instructions ?Recorded ?Confirmed levothyroxine 75 mcg tablet 75 mcg PO DAILY 10/22/21 06/09/22 Previous Rx's ?Medication ?Instructions ?Recorded celecoxib 200 mg capsule (Celebrex) 200 mg PO BID #30 caps 11/04/21 amlodipine 2.5 mg tablet 2.5 mg PO BID High Blood Pressure 02/08/25 #60 tabs cyclobenzaprine 10 mg tablet 10 mg PO TID #14 tabs 02/08/25 tramadol 50 mg tablet 50 mg PO Q6H PRN pain #14 tabs 02/08/25 Allergies Allergy/AdvReac Type Severity Reaction Status Date / Time lactase (From [employer]) Allergy Unknown Verified 06/09/22 10:20 No Known Drug Allergies Allergy Unknown Verified 06/09/22 10:20 Sugars, Metabolically Active Allergy Unknown Verified 06/09/22 10:20 wheat Allergy ALGY-Rash Verified 06/09/22 10:20 Review of Systems Const: Denies: fever(s), chills, body aches, fatigue or malaise Card: Denies: chest pain, palpitations, irregular heart rhythm, edema, swelling of feet/ankles, lightheadedness, syncope, pre-syncope, dyspnea on exertion or orthopnea Resp: Denies: dyspnea, pain on inspiration or chest congestion GI: Denies: abdominal pain : Denies: flank pain, dysuria or hematuria Musc: Reports: back pain and joint pain (posterior R shoulder pain); Denies: neck pain, extremity pain, extremity swelling, joint swelling or joint redness Neuro: Denies: headache(s), numbness in extremities, weakness in extremities or sensory changes PFSH ED PFSH: Medical History Gluten intolerance Self diagnosed Hypothyroidism Surgical History History of total left hip replacement Family History Father Diabetes Mother Cancer from pneumonia Denies family history of CAD (coronary artery disease) Anesthesia complication Hypertension Social History Smoking and tobacco/nicotine status: never used tobacco/nicotine Alcohol intake: never Substance/Drug Use: never Physical Exam Const: COMMON NORMALS: no acute distress, average body habitus, patient oriented x3, no limitations, healthy appearing, alert and well nourished GENERAL APPEARANCE: cooperative ORIENTATION/CONSCIOUSNESS: Yes awake, Yes oriented to person, Yes oriented to place and Yes oriented to time Neck/C-Spine: COMMON NORMALS: full ROM GENERAL: Yes normal visual inspection CERVICAL SPINE: No Cervical spine tenderness and No Paracervical muscle tenderness Chest: COMMONS NORMALS: normal inspection of the chest and normal palpation of entire chest wall Resp: COMMON NORMALS: normal respiratory effort and clear to auscultation bilaterally AUSCULTATION: clear to auscultation bilaterally Cardio: COMMON NORMALS: regular rate and regular rhythm RATE: regular rate RHYTHM: regular rhythm GI: COMMON NORMALS: Normal to inspection, nondistended, normoactive bowel sounds present, Soft to palpation and no masses PALPATION: Yes Soft to palpation : COMMON NORMALS: Yes no CVA tenderness BLADDER/KIDNEY EXAM: Yes no CVA tenderness Back/Pelvis: COMMON NORMALS: no CVA tenderness THORACIC SPINE/UPPER BACK: No thoracic spinal tenderness, Yes paraspinal muscle tenderness Thoracic paraspinal muscle tenderness: right and No paraspinal muscle spasm LUMBAR SPINE/LOWER BACK: Yes normal to inspection, No lumbar spinal tenderness, No paraspinal muscle tenderness and No paraspinal muscle spasm PELVIS: Yes buttocks normal and No sciatic notch tenderness SACRUM: no tenderness COCCYX: no tenderness BACK IMAGE (FEMALE):  1. area of pain; currently wearing lidocaine patch-temporarily removed; no rash; TTP along R thoracic spine edge and medial R scapula Extremity: COMMON NORMALS: normal to inspection GENERAL: Yes normal exam except as noted Neuro: COMMON NORMALS: patient oriented x3, moves all extremities, no focal motor deficits and no sensory deficits noted SENSORIUM/ORIENTATION: Yes alert, Yes oriented to person, Yes oriented to place and Yes oriented to time Skin: COMMON NORMALS: no rashes or lesions noted GENERAL SKIN EXAM: no rashes or lesions noted Course Vital Signs: Vital signs: Vital Signs Temperature 98.0 F 02/08/25 10:21 Pulse Rate 64 02/08/25 11:07 Respiratory Rate 16 02/08/25 11:07 Blood Pressure 180/98 02/08/25 11:07 Pulse Oximetry 95 02/08/25 11:07 MDM - Back Pain/Injury Medical Decision Making Patient's pain sounding musculoskeletal. Blood work here was unremarkable. EKG nonischemic/no acute changes from previous. CXR/XR thoracic spine unremarkable for acute pathology. She does have significant kyphosis/scoliosis possibly contributing to her pain. She feels like Norflex/Toradol helped here. Blood pressure somewhat improved. Recommend she keep a log of this at home and can start BP meds if it continously runs high-she is agreeable to follow up [facility] PCP. Return precautions discussed. Medical Records I reviewed the patient's medical records. Labs I reviewed the patient's lab results. 02/08/25 10:58 02/08/25 10:58 Radiology Impressions Chest X-Ray 02/08/25 10:46 IMPRESSION: 1. Hyperinflated lungs suggesting underlying COPD. 2. No acute cardiopulmonary pathology is suspected. Thoracic Spine X-Ray 02/08/25 10:46 IMPRESSION: 1. Osteopenia and senile kyphosis. 2. No acute musculoskeletal pathology is evident. 3. Multidirectional scoliosis Laboratory Results WBC 7.72 10^3/uL (3.29-11.43) 02/08/25 10:58 RBC 4.69 10^6/uL (3.85-5.65) 02/08/25 10:58 Hgb 13.90 g/dL (11.27-16.99) 02/08/25 10:58 Hct 43.5 % (36-47) 02/08/25 10:58 MCV 92.8 fl (85-98) 02/08/25 10:58 MCH 29.6 pg (27-33) 02/08/25 10:58 MCHC 32.0 g/dL (30-55) 02/08/25 10:58 RDW 13.3 % (12.1-15.1) 02/08/25 10:58 Plt Count 236 10^3/cmm (157-399) 02/08/25 10:58 MPV 9.5 fL (7.4-10.4) 02/08/25 10:58 Neut % (Auto) 64.3 % 02/08/25 10:58 Lymph % (Auto) 21.1 % 02/08/25 10:58 [facility] [place] [facility] % (Auto) 12.0 % 02/08/25 10:58 Eos % (Auto) 1.8 % 02/08/25 10:58 Baso % (Auto) 0.5 % 02/08/25 10:58 Neut # (Auto) 4.96 10^3/uL (1.8-7.7) 02/08/25 10:58 Lymph # (Auto) 1.6 10^3/uL (0.8-4.8) 02/08/25 10:58 [facility] # (Auto) 0.9 10^3/uL (0.2-0.9) 02/08/25 10:58 Eos # (Auto) 0.1 10^3/uL (0.0-0.8) 02/08/25 10:58 Baso # (Auto) 0.0 10^3/uL (0.0-0.1) 02/08/25 10:58 Nucleated RBC % (auto) 0 % 02/08/25 10:58 Nucleated RBCs # 0.0 /100WBC 02/08/25 10:58 Sodium 139 mmol/L (136-145) 02/08/25 10:58 Potassium 4.8 mmol/L (3.5-5.1) 02/08/25 10:58 Chloride 101 mmol/L (98-107) 02/08/25 10:58 Carbon Dioxide 27 mmol/L (22-29) 02/08/25 10:58 Anion Gap 15.8 (5-19) 02/08/25 10:58 BUN 24 mg/dL (8-23) H 02/08/25 10:58 Creatinine 0.7 mg/dL (0.5-0.9) 02/08/25 10:58 GFR Calculation Not Reportable 02/08/25 10:58 Glucose 98 mg/dL (65-115) 02/08/25 10:58 Calculated Osmolality 292 mOsm/kg (285-295) 02/08/25 10:58 Calcium 9.6 mg/dL (8.5-10.5) 02/08/25 10:58 Total Bilirubin 0.4 mg/dL (0.15-1.2) 02/08/25 10:58 AST 13 U/L (0-32) 02/08/25 10:58 ALT 10 U/L (0-33) 02/08/25 10:58 Alkaline Phosphatase 53 U/L (35-105) 02/08/25 10:58 Troponin T Baseline 11 ng/L (0-10) H 02/08/25 10:58 Total Protein 6.5 g/dL (6.6-8.7) L 02/08/25 10:58 Albumin 4.3 g/dL (3.5-5.2) 02/08/25 10:58 Globulin 2.2 g/dL (1.3-4.6) 02/08/25 10:58 All radiology interpretation(s) finalized by discharge Discharge Plan Discharge Patient Disposition: Home Clinical Impression: Left-sided thoracic back pain Qualifiers: Chronicity: acute Qualified Code(s): M54.6 - Pain in thoracic spine Condition: Stable Prescriptions: New cyclobenzaprine 10 mg tablet 10 mg PO TID Qty: 14 0RF tramadol 50 mg tablet 50 mg PO Q6H PRN (Reason: pain) Qty: 14 0RF Changed amlodipine 2.5 mg tablet 2.5 mg PO BID Qty: 60 0RF Rx Instructions: Hold medication if Blood Pressure less than 130 (top number). Keep log of pressures for PCP. No Action celecoxib [Celebrex] 200 mg capsule 200 mg PO BID Qty: 30 0RF Rx Instructions: Take one capsule twice daily levothyroxine 75 mcg Tablet 75 mcg PO DAILY Discharge Orders: Discharge ED (Routine); Ordered 02/08/25 Ordered By: Dana Craig Referrals: Adriana Verduzco MD [Primary Care Provider, Family Practice] Patient Instructions: Opioid Safety, Pain Management, Patient Portal & Jodie Instructions Activity Restrictions/Additional Instructions: As we discussed, she needs to keep a blood pressure log at home monitoring twice daily. If blood pressures continue to run above 140/90 then I would like her to start the amlodipine 2.5mg tablet twice daily. Please keep a blood pressure log to follow-up with her primary care provider in 1 to 2 weeks. She may continue the lidocaine patches as well as the herbal/medicated balm to help with her back pain. Will also place her on muscle relaxers. You requested a small amount of Tramadol which has been provided. She can also take 600 mg of Ibuprofen every 6-8 hours. Print Language: Tajik Coding Level of Care Code ED [employer] for Bhupinder Lopez
[2025-02-08] MEDS: hyDRALAzine 20 mg/mL INJ 1 mL 10 MG IVP (10:58)
[2025-02-08 11:05] LABS: Hematocrit 43.5 % (36-47); Hemoglobin 13.90 g/dL (11.27-16.99); Mean Corpuscular HGB Conc 32.0 g/dL (30-55); Mean Corpuscular Hemoglobin 29.6 pg (27-33); Mean Corpuscular Volume 92.8 fl (85-98); Nucleated Red Blood Cells % 0 %; Platelet Count 236 10^3/cmm (157-399); Red Blood Count 4.69 10^6/uL (3.85-5.65); White Blood Count 7.72 10^3/uL (3.29-11.43)
[2025-02-08 11:07] VITALS: BP 180/98; PULSE 64; RESP 16; O2SAT 95
[2025-02-08 11:24] LABS: Alanine Aminotransferase 10 U/L (0-33); Albumin Level 4.3 g/dL (3.5-5.2); Alkaline Phosphatase 53 U/L (35-105); Anion Gap 15.8 (5-19); Aspartate Amino Transferase 13 U/L (0-32); Blood Urea Nitrogen 24 mg/dL (8-23); Calcium 9.6 mg/dL (8.5-10.5); Carbon Dioxide 27 mmol/L (22-29); Chloride 101 mmol/L (98-107); Creatinine Clr Calc Pharmacy 48.8805; Globulin 2.2 g/dL (1.3-4.6); Glucose 98 mg/dL (65-115); Osmolality Calculated 292 mOsm/kg (285-295); Potassium 4.8 mmol/L (3.5-5.1); Sodium 139 mmol/L (136-145); Total Protein 6.5 g/dL (6.6-8.7)
[2025-02-08 11:25] LABS: Troponin(5th) Baseline 11 ng/L (0-10)
[2025-02-08] MEDS: orphenadrine 30 mg/mL Inj 2 mL IVP (11:48)
== END 2025-02-08 13:11 | disposition home or self-care (01) ==
PROVIDERS: Emergency Provider Physician Assistant; PCP Family Medicine
DX: M54.6 Pain in thoracic spine (principal)
CPT/HCPCS: 71045; 72072; 80053; 84484; 85025; 93005; 96374; 96375; 99285; J0360; J1885; J2360; J9999